=== PATIENT | female | born 1930 ===

== ENCOUNTER 2017-07-05 09:54 | Inpatient (IN) | payer MEDICARE, MEDICAID ==
[2017-07-05 10:09] VITALS: BMI 37.0
--- NOTE | 2017-07-05 10:56 | CP.PCM.HP ---
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 Present on Admission - Present on Admission Any Indicators Present on Admission: No History of DVT/PE: No History of Uncontrolled Diabetes: No Urinary Catheter: No Decubitus Ulcer Present: No Review of Systems - Review of Systems Systems not reviewed;Unavailable: Dementia Past Patient History - Tetanus Immunizations Tetanus Immunization: Unknown - Past Medical History & Family History Past Medical History?: Yes Past Family History: Reviewed and not pertinent - Past Social History Smoking Status: Never Smoked Alcohol: None Home Situation {Lives}: With Family - CARDIAC Hx Cardiac Disorders: Yes Hx Heart Attack: Yes Hx Hypertension: Yes - PULMONARY Hx Respiratory Disorders: No - NEUROLOGICAL Hx Neurological Disorder: Yes Hx Dementia: Yes - HEENT Hx HEENT Problems: No - RENAL Hx Chronic Kidney Disease: No - ENDOCRINE/METABOLIC Hx Endocrine Disorders: Yes Hx Hypothyroidism: Yes - HEMATOLOGICAL/ONCOLOGICAL Hx Blood Disorders: No - INTEGUMENTARY Hx Dermatological Problems: No - MUSCULOSKELETAL/RHEUMATOLOGICAL Hx Osteoarthritis: Yes Hx Osteoporosis: Yes - GASTROINTESTINAL Hx Gastrointestinal Disorders: No - GENITOURINARY/GYNECOLOGICAL Hx Genitourinary Disorders: No - PSYCHIATRIC Hx Psychophysiologic Disorder: No - SURGICAL HISTORY Hx Surgeries: No - ANESTHESIA Hx Anesthesia: No Meds Allergies/Adverse Reactions: Allergies Allergy/AdvReac Type Severity Reaction Status Date / Time No Known Allergies Allergy Verified 07/05/17 10:06 Physical Exam - Constitutional Appears: No Acute Distress - Head Exam Head Exam: ATRAUMATIC - Eye Exam Eye Exam: absent: Scleral icterus - ENT Exam ENT Exam: Mucous Membranes Moist - Neck Exam Neck exam: Negative for: Meningismus - Respiratory Exam Respiratory Exam: absent: Rhonchi, Wheezes, Respiratory Distress - Cardiovascular Exam Cardiovascular Exam: REGULAR RHYTHM, +S1, +S2 - GI/Abdominal Exam GI & Abdominal Exam: Soft. absent: Tenderness - Rectal Exam Rectal Exam: Deferred - Extremities Exam Extremities exam: Negative for: full ROM (limited ROM on right knee) - Neurological Exam Neurological exam: Alert - Psychiatric Exam Psychiatric exam: Normal Affect - Skin Skin Exam: Dry, Intact Results - Vital Signs Recent Vital Signs: Last Vital Signs Temp 97.9 F 07/05/17 10:46 Pulse 62 07/05/17 10:46 Resp 20 07/05/17 10:46 BP 140/67 07/05/17 10:46 Pulse Ox 95 07/05/17 10:46 Assessment & Plan (1) Osteoarthritis of right knee Status: Chronic (2) CAD (coronary artery disease) Status: Chronic (3) HTN (hypertension) Status: Chronic (4) Dementia Status: Chronic (5) Hypothyroid Status: Chronic - Assessment and Plan (Free Text) Assessment: 86 yo female with history 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 1. OA of Right Knee for TKR of the right by Dr Brar today pt cleared for surgery by PCP and wild life photographer 2. CAD denied chest pain or SOB did not take Isosorbide today as per instruction 3. HTN BP stable took Enalapril/HCTZ this morning 4. Dementia on Donepezil and Memantine but held this morning prior to surgery 5. Hypothyroid on Levothyroxine 100mcg daily but held this morning
[2017-07-05] MEDS ORDERED: Thrombin Topical 5,000 IU Spray Kit ONE (11:15)
[2017-07-05] MEDS ORDERED: Ciprofloxacin 400mg/200ml D5W 400 MG/200 ML BAG IVPB ONE (11:50)
[2017-07-05 13:16] LABS: RBC URINE 1 /hpf (0-3); URINE BILIRUBIN NEGATIVE (NEGATIVE); URINE BLOOD NEGATIVE (NEGATIVE); URINE COLOR YELLOW (YELLOW); URINE GLUCOSE (UA) NEG (Normal); URINE KETONE NEGATIVE (NEGATIVE); URINE LEUKOCYTE ESTERASE NEG Leu/uL (Negative); URINE PROTEIN NEGATIVE (NEGATIVE); URINE UROBILINOGEN 0.2-1.0 mg/dL (0.2-1.0)
[2017-07-05] MEDS ORDERED: Lidocaine 4% (Laryng-O-Jet) Kit MM ONE (15:09)
[2017-07-05] MEDS ORDERED: Phenylephrine 10 mg/ml Inj ONE (15:10)
[2017-07-05] MEDS ORDERED: Etomidate 20 mg/10ml Inj IV ONE (15:10)
[2017-07-05] MEDS ORDERED: Lidocaine Hydrochloride 5 ML INJ ONE (15:10)
[2017-07-05] MEDS ORDERED: Rocuronium 10 mg/ml (5 ml) ONE (15:11)
[2017-07-05] MEDS ORDERED: Succinylcholine 200 mg/10 ml Inj IV ONE (15:11)
[2017-07-05] MEDS ORDERED: Lactated Ringer's 1,000 ML IV ONE ×2 (18:15→23:00)
[2017-07-05] MEDS ORDERED: Sevoflurane - Inhalation Anesthetic Liq (250 ml) ONE (19:16)
[2017-07-05] MEDS ORDERED: ePHEDrine 50 mg/ml Inj ONE (19:39)
[2017-07-05] MEDS ORDERED: Neostigmine Methylsulfate 2 MG/2 ML ML IV ONE (20:07)
--- NOTE | 2017-07-05 21:18 | PCM.SURG1 ---
Surgeon's Initial Post Op Note - Surgeon's Notes Surgeon: Maykel Access Database Developer: FIOR Manzo Type of Anesthesia: General Endo, Spinal, Block Regional Anesthesia Administered By: Dr Chaitanya Mendez Pre-Operative Diagnosis: sevre tricompartmental O/A R knee with varus deformity Operative Findings: as abobe. tricompartmental synovitis. posterior capsular contracture. lateral patella contracture. attenuation patella ligament Post-Operative Diagnosis: as above Operation Performed: RTKR. repair/reiunforcemnt patella ligament. anterior and posterior synovectomy. posterior capsular release. lateral patella release Specimen/Specimens Removed: synovium cartilage/bone Estimated Blood Loss: EBL {In ML}: 50 Blood Products Given: N/A Drains Used: No Drains Post-Op Condition: Good Date of Surgery/Procedure: 07/05/17 Time of Surgery/Procedure: 19:00 (tiem in room/anesthesia indcution time 18:15)
[2017-07-05] MEDS ORDERED: Propofol 10 mg/ml Inj (100 ml) IV SCH (22:30)
[2017-07-05] MEDS ORDERED: Propofol 10 mg/ml 1,000 MG/100 ML VIAL IV SCH (22:30)
[2017-07-05] MEDS ORDERED: Propofol 10 mg/ml 1,000 MG/100 ML VIAL ONE (22:32)
--- NOTE | 2017-07-05 22:59 | CP.PCM.CON ---
History of Present Illness - History of Present Illness History of Present Illness: Attending: Jorge Niño MD Orthopedist: Dr Brar Reason for Consult: Critical Care Management Chief Complaint: Respiratory distress The patient is sanjiv nd examined in the ICU s/p Right TKR HPI: The History is obtained from [facility] and from the medical record. This is an 86 years old female with hx of being treated with Cipro for UTI, Dementia, CAD, WI with a negative Stress test done at [facility] by Dr Cho, and HTN, who failed conservative management of Osteoarthritis of the right knee and is now admitted in the ICU s/p Right Total knee Replacement. The patient received 1 Liter of fluid in OR along with Femoral and Sciatic nerve Blocks. She awoke from Anesthesia combative, coughing on the tube with respiratory rate of 18/min. She was extubated but could not maintain acceptable Oxygen Saturation , so she was re-intubated ( AC 10, TV 400, PEEP 5 andFiO2 of 60); and transferred to ICU. PMH: HTN; CAD with WI; Hypothyroidism; Dementia; Osteoarthritis; Osteopenia PSH: Right TKR SH: Never Smoked; no illegal drug use; No Alcohol; Live with Family FH: Unknown Family Hx Allergies: NKDA Review of Systems - Review of Systems Systems not reviewed;Unavailable: Dementia, Intubated Review of Systems: Review of systems limited because the patient is Intubated and sedated. Past Patient History - Tetanus Immunizations Tetanus Immunization: Unknown - Past Medical History & Family History Past Medical History?: Yes Past Family History: Reviewed and not pertinent - Past Social History Smoking Status: Never Smoked Chewing Tobacco Use: No Cigar Use: No Alcohol: None Home Situation {Lives}: With Family - CARDIAC Hx Cardiac Disorders: Yes Hx Heart Attack: Yes Hx Hypertension: Yes - PULMONARY Hx Respiratory Disorders: No - NEUROLOGICAL Hx Neurological Disorder: Yes Hx Dementia: Yes - HEENT Hx HEENT Problems: No - RENAL Hx Chronic Kidney Disease: No - ENDOCRINE/METABOLIC Hx Endocrine Disorders: Yes Hx Hypothyroidism: Yes - HEMATOLOGICAL/ONCOLOGICAL Hx Blood Disorders: No - INTEGUMENTARY Hx Dermatological Problems: No - MUSCULOSKELETAL/RHEUMATOLOGICAL Hx Osteoarthritis: Yes Hx Osteoporosis: Yes - GASTROINTESTINAL Hx Gastrointestinal Disorders: No - GENITOURINARY/GYNECOLOGICAL Hx Genitourinary Disorders: No - PSYCHIATRIC Hx Psychophysiologic Disorder: No - SURGICAL HISTORY Hx Surgeries: No - ANESTHESIA Hx Anesthesia: No Meds Allergies/Adverse Reactions: Allergies Allergy/AdvReac Type Severity Reaction Status Date / Time No Known Allergies Allergy Verified 07/05/17 10:06 - Medications Medications: Current Medications Cefazolin Sodium 1 gm/ Sodium (Chloride) 100 mls @ 100 mls/hr IVPB Q8 [facility] Stop: 07/06/17 09:59 Propofol (Diprivan) 1,000 mg in 100 mls @ 2.245 mls/hr IV .Q24H [facility]; 5 MCG/KG/ MIN PRN Reason: Protocol Stop: 07/06/17 22:47 Propofol (Diprivan) 1,000 mg IV .TITRATE [facility] PRN Reason: Protocol Physical Exam - Constitutional Appears: In Acute Distress - Head Exam Head Exam: ATRAUMATIC, NORMOCEPHALIC - Eye Exam Eye Exam: EOMI, Normal appearance - ENT Exam ENT Exam: Mucous Membranes Moist, Normal Exam, Normal External Ear Exam - Neck Exam Neck exam: Positive for: Full Rom, Normal Inspection. Negative for: Lymphadenopathy, Thyromegaly - Respiratory Exam Respiratory Exam: Rales, Wheezes Additional comments: Inspiratory and expiratory rales Auscultated in both lung malcolm R>L. expiratory wheezes bilateral. - Cardiovascular Exam Cardiovascular Exam: REGULAR RHYTHM, RRR, +S1, +S2 - GI/Abdominal Exam GI & Abdominal Exam: Normal Bowel Sounds, Soft - Rectal Exam Rectal Exam: Deferred - Extremities Exam Additional comments: Right lower extremity in post surgical dressing wrapped in MOHIT bandage with a Knee immobilizer in place. - Back Exam Back exam: NORMAL INSPECTION - Neurological Exam Neurological exam: CN II-XII Intact, Reflexes Normal Additional comments: Intubated, but now awake on the Precidex, moving both upper extremities. - Skin Skin Exam: Intact, Normal Color, Warm Results - Vital Signs Recent Vital Signs: Last Vital Signs Temp 97.5 F L 07/05/17 22:45 Pulse 92 H 07/05/17 22:45 Resp 16 07/05/17 22:45 BP 91/56 L 07/05/17 22:45 Pulse Ox 100 07/05/17 22:45 - Labs Labs: Laboratory Results - last 24 hr 07/05/17 07/05/17 10:50 12:30 Urine Color Yellow Urine Clarity Turbid Urine pH 7.0 Ur Specific [place] 1.018 Urine Protein Negative Urine Glucose (UA) Neg Urine Ketones Negative Urine Blood Negative Urine Nitrate Negative Urine Bilirubin Negative Urine Urobilinogen 0.2-1.0 Ur Leukocyte Esterase Neg Urine RBC (Auto) 1 Ur Squamous Epith Cells < 1 Amorphous Sediment Moderate H Blood Type O POSITIVE Antibody Screen Negative BBK History Checked No verified bt Assessment & Plan - Assessment and Plan (Free Text) Assessment: #. Acute Respiratory Distress #. Osteoarthritis s/p Right TKR #. HTN #. Hypothyroidism #. Dementia Plan: 86 years old female with hx of being treated with Cipro for UTI, Dementia, CAD, WI with a negative Stress test done at [facility] by Dr Cho, and HTN, who failed conservative management of Osteoarthritis of the right knee and is now admitted in the ICU s/p Right Total knee Replacement. She awoke from Anesthesia combative, was extubated but could not maintain acceptable Oxygen Saturation, so she was re-intubated and transferred to ICU. #. Acute Respiratory Distress secondary to volume overload - Patient extubated post surgery but was reintubated by Anesthesia( AC 10, TV 400, PEEP of 5 and FiO2 of 50%) - CXR showed Elevated right diaphragm with interstitial infiltrate in left lung >than right lung - IV fluid reduced to 20mls/hr - Lasix 20mg IV stat - Morphine 2mg IV given - Prppoful was started but was changed to Precidex after patient was still restless with BP falling. #. Osteoarthritis s/p Right TKR - Orthopedic Dr Brar on consult - Orthopedic management - Pain management - patient received Femoral and Sciatic Blocks - OT/PT #. HTN - Restart Antihypertensive medication when patient begin oral or via OG tube -follow Blood pressures #. Hypothyroidism - Synthroid - Follow TSH #. Dementia - Namenda/Aricept when OG tube is inserted #. Stress Ulcer prophylaxis with Pantoprazole #. DVT prophylaxis with Lovenox #. Code Scale : Full - Date & Time Date: 07/05/17 Time: 22:59
[2017-07-05] MEDS ORDERED: Sodium Chloride 0.9% 1,000 ML IV SCH (23:45)
[2017-07-06] MEDS: ceFAZolin 1 GM in Sodium Chloride 0.9% 100 ML IVPB SCH ×2 (00:44→08:35)
[2017-07-06] MEDS ORDERED: Dexmedetomidine Hydrochloride 400 MCG in Sodium Chloride 0.9% 96 ML IV ONE ×3 (01:05→07:30)
[2017-07-06] MEDS ORDERED: Sodium Chloride 0.9% 1,000 ML IV SCH (02:25)
[2017-07-06] MEDS ORDERED: Chlorhexidine Gluconate 1 APPL/PKT TP ONE ×2 (02:39→04:10)
--- NOTE | 2017-07-06 02:41 | OP ---
PROCEDURE DATE: 07/05/2017 PREOPERATIVE DIAGNOSIS: Severe tricompartmental osteoarthritis of the right knee. POSTOPERATIVE DIAGNOSES: 1. Severe tricompartmental osteoarthritis of the right knee. 2. Proliferative synovitis. 3. Posterior capsular contracture. 4. Lateral patellar retinacular contracture. 5. Attenuation of patellar ligament. PROCEDURE: 1. Right total knee replacement arthroplasty. 2. Reconstruction patellar ligament. 3. Anterior and posterior synovectomy. 4. Posterior capsular release. 5. Lateral patellar retinacular release. SURGEON: Dr. Brar. REGASIFICATION PLANT OPERATOR: MAXI Tesfaye, certified resident nursing first crusher. ESTIMATED BLOOD LOSS: 50 mL BLOOD PRODUCTS: None. DRAINS: None. POSTOPERATIVE CONDITION: Stable. TIME: Time of the incision 1900 hours. Anesthesia induction time 1815 hours. OPERATIVE INDICATION: Olga Cannon is an 86-year-old woman, who presents with severe pain and deformity of the right knee. The patient presents with her son and [id number], who are the culturally competent translators. Pros, cons, risks and benefits of replacement arthroplasty discussed at length. The possibility of mechanical failure, infection, thromboembolic disease secondary to tertiary surgery is discussed. The patient's comorbidities and age, possibility even of is discussed. The patient wished the surgery be accomplished. She can no longer stand the discomfort. DESCRIPTION OF PROCEDURE: After having obtained informed consent in the above fashion; after the satisfactory induction of general and regional anesthesia by Dr. Avery; after having identified side, site, and procedure and critical pause/timeout; the patient identified as Olga Cannon in the supine position with all bony prominences well padded. The right lower extremity is prepped and free draped in the usual fashion for lower extremity surgery. The tourniquet had been applied, but has not yet inflated. After exsanguinating the limbs using 6 inch esmarch bandage, the tourniquet which had been applied inflated to 350 mmHg. The 6-inch straight midline approach is made near the skin incision, carried down through the skin, subcutaneous tissue and medial arthrotomy is accomplished. Dissection is carried around posterior medially to the direct head of the semimembraneous tendon. The portion of the patella ligament is elevated and anterior and posterior cruciate ligaments were excised. Median and lateral meniscectomies were accomplished. The tibia is dislocated anteriorly and the initial osteotomy of the arthroplasty is accomplished on the tibial side. The site to be marked medial deformity using computer navigation with accelerometer technique. The accelerometer is applied. The sensor and accelerometer were applied and affixed in the anterior tibia. Varus and valgus is set to 0 x 0 degrees with 3 degrees posterior slope. The depth of the cut is 1 mm below the deficiency on the medial side. Tibial osteotomy is accomplished. The proximal tibia is prepared and punched. The cartilage on the medial side is burred and this will be used with reinforced screw. This having been accomplished, attention is now turned to the femur. The guide pin is placed above the intercondylar notch. Distal femoral cutting guide is placed. The accelerometer and sensor were placed. Varus and valgus is set to 0 degrees with 0.5 degrees slope on the femoral cut. The distal cut is accomplished at 9 mm anterior and posterior sizing to a #2 femoral component. Anterior and posterior osteotomies were accomplished. Chamfer cuts were accomplished. The trial is placed. It should be noted that the posterior capsule is released because this contracted a mild lateral patellar retinacular release is accomplished. The wound is thoroughly irrigated. Concern is because the attenuation of the patellar ligament. Tying is accomplished with a #2 cemented femoral component. Three cemented tibial tray 17 mm poly. The notch is cut. Attention is turned to the patella. The patella girth is 26 mm. Free hand patella osteotomy is accomplished and the patella is sized for a #2. This having been accomplished, the defect is in the medial tibia. It is drilled with a 2.5 AO drill bit sounding insertion of the screw. This having been accomplished, a #2 femoral component, #3 tibial tray, 17 mm poly is trailed with the #2 patella. Balance was found to be excellent. At this point in time, concern is patellar ligament will be reinforced with a suture anchor. The femur, tibia, and patella are prepared and lateral patellar retinacular release is accomplished and the #2 cemented femoral component is applied and #3 cemented tibial tray, #2 cemented polyethylene. The tourniquet is deflated. Hemostasis controlled. The wound was thoroughly irrigated. Stability is found to be excellent. Full extension is achieved. Flexion, closures and layers with #2 Quill followed by 0 Quill interrupted Vicryl lee for skin. It should be noted that prior to closure, repair/reconstruction of the patellar ligament is accomplished using Arthrex suture anchor 4.5 mm and the 2 fiber wire sutures were used to reinforce and repair the patellar ligament with a free needle placement through the patellar ligament and having secured the patellar ligament. This having been accomplished, the wound was thoroughly irrigated. Closure having been accomplished. Lee for skin. Edgar Keith compression dressing and knee immobilizer was applied. Zurdo Brar MD
[2017-07-06 05:21] LABS: HEMATOCRIT 40.6 % (34.0-47.0); MEAN CELL VOLUME 85.7 fl (81.0-99.0); MEAN CORPUSCULAR HEMOGLOBIN 27.8 pg (27.0-31.0); MEAN CORPUSCULAR HGB CONC 32.5 g/dL (33.0-37.0); RED CELL DISTRIBUTION WIDTH 15.5 % (11.5-14.5); WHITE BLOOD COUNT 10.3 K/uL (4.8-10.8)
[2017-07-06 05:26] LABS: BLOOD UREA NITROGEN 10 mg/dl (7-17); CALCIUM 7.9 mg/dL (8.4-10.2); CARBON DIOXIDE 24 mmol/L (22-30); CHLORIDE 104 mmol/L (98-107); GFR AFRICAN-AMERICAN > 60; GLUCOSE,RANDOM 156 mg/dL (65-105); POTASSIUM 3.9 MMOL/L (3.6-5.0); SODIUM 139 mmol/l (132-148)
[2017-07-06 05:58] LABS: ABG ALLEN TEST YES; ABG MECHANICAL RATE 10; ARTERIAL BLOOD GAS MODE A/C; ARTERIAL BLOOD GAS O2 CAPACITY 18.1 mL/dL (16-24); ARTERIAL BLOOD GAS O2 CONTENT 17.9 ML/dL (15-23); ARTERIAL BLOOD GAS PH 7.41 (7.35-7.45); ARTERIAL BLOOD GAS PO2 92 mm/Hg (80-100); ARTERIAL BLOOD HGB O2 SAT 95.5 % (95.0-98.0); ATERIAL BLOOD GAS PEEP 5; CARBOXYHEMOGLOBIN 1.5 % (0.5-1.5); HHB 1.2 % (0.0-5.0); METHEMOGLOBIN 1.7 % (0.0-3.0)
[2017-07-06] MEDS ORDERED: Pneumococcal 23-Valent Vaccine IM ONE (06:00)
[2017-07-06] MEDS ORDERED: Influenza Vaccine 18yr & older 0.5 ML/45 MCG SYR IM ONE (06:00)
[2017-07-06 06:22] LABS: PARTIAL THROMBOPLASTIN TIME 25.5 Seconds (25.6-37.1)
--- NOTE | 2017-07-06 07:22 | CP.PCM.PN ---
Subjective - Date & Time of Evaluation Date of Evaluation: 07/06/17 Time of Evaluation: 07:15 - Subjective Subjective: S- pt comfortable/currentl;y intubated ( at discretion of Dr Mendez) Objective - Vital Signs/Intake and Output Vital Signs (last 24 hours): Temp Pulse Resp BP Pulse Ox 97.5 F L 61 15 88/48 L 100 07/06/17 04:00 07/06/17 06:00 07/06/17 06:00 07/06/17 06:09 07/06/17 06:00 Intake and Output: 07/06/17 07/06/17 06:59 18:59 Intake Total 630 Output Total 950 Balance -320 - Medications Medications: Current Medications Donepezil HCl (Aricept) 10 mg PO DAILY [facility] Enalapril Maleate (Vasotec) 5 mg PO DAILY [facility] Enoxaparin Sodium (Lovenox) 40 mg SC DAILY [facility] PRN Reason: Protocol Cefazolin Sodium 1 gm/ Sodium (Chloride) 100 mls @ 100 mls/hr IVPB Q8 [facility] Stop: 07/06/17 09:59 Last Admin: 07/06/17 00:44 Dose: 100 mls/hr Sodium Chloride (Sodium Chloride 0.9%) 1,000 mls @ 20 mls/hr IV .Q24H [facility] Stop: 07/06/17 23:34 Last Admin: 07/06/17 02:30 Dose: 20 mls/hr Dexmedetomidine HCl 400 mcg/ (Sodium Chloride) 100 mls @ 7.48 mls/hr IV .[id number] ONE; 0.4 MCG/KG/HR PRN Reason: Protocol Stop: 07/06/17 20:52 Isosorbide Mononitrate (Imdur Er) 30 mg PO DAILY [facility] Levothyroxine Sodium (Synthroid) 50 mcg IVP DAILY [facility] Memantine (Namenda) 10 mg PO DAILY [facility] Pantoprazole Sodium (Protonix Susp) 40 mg NG DAILY [facility] Pravastatin Sodium (Pravachol) 20 mg PO DAILY [facility] Sertraline HCl (Zoloft) 25 mg PO DAILY [facility] - Labs Labs: 07/06/17 04:25 07/06/17 04:25 PT 12.9 Seconds (9.8-13.1) 07/06/17 04:25 INR 1.3 (0.9-1.2) H 07/06/17 04:25 APTT 25.5 Seconds (25.6-37.1) L 07/06/17 04:25 - Skin Additional comments: Objective Musculoskeltal stance/gait- defrred R knee wound neign N/V intact no gross/progressive defciits post op xrays reveal excellent position of construct Assessment and Plan - Assessment and Plan (Free Text) Assessment: A-s/p R TKR pt [id number] secondary to combative behavior post op P- wean off tube as per anaesthesia CPM physio DR Schuster and DR king on consult
[2017-07-06] MEDS ORDERED: Levothyroxine 100 mcg (0.1 mg) Inj IVP SCH (09:00)
--- NOTE | 2017-07-06 09:18 | CP.PCM.CON ---
History of Present Illness - History of Present Illness History of Present Illness: THE PATIENT IS AN 86 YEAR OLD FEMALE WHO UNDERWENT A RIGHT TKR YESTERDAY FOR OA. SHE ALSO HAS A HISTORY OF CAD, HYPERTENSION AND DEMENTIA. CARDIOLOGY WAS ASKED TO SEE AND FOLLOW HER. THE PATIENT IS ON MV AND CAN'T GIVE ME MORE OF A HISTORY. Past Patient History - Tetanus Immunizations Tetanus Immunization: Unknown - Past Medical History & Family History Past Medical History?: Yes Past Family History: Reviewed and not pertinent - Past Social History Smoking Status: Never Smoked Chewing Tobacco Use: No Cigar Use: No Alcohol: None Home Situation {Lives}: With Family - CARDIAC Hx Cardiac Disorders: Yes Hx Heart Attack: Yes Hx Hypertension: Yes - PULMONARY Hx Respiratory Disorders: No - NEUROLOGICAL Hx Neurological Disorder: Yes Hx Dementia: Yes - HEENT Hx HEENT Problems: No - RENAL Hx Chronic Kidney Disease: No - ENDOCRINE/METABOLIC Hx Endocrine Disorders: Yes Hx Hypothyroidism: Yes - HEMATOLOGICAL/ONCOLOGICAL Hx Blood Disorders: No - INTEGUMENTARY Hx Dermatological Problems: No - MUSCULOSKELETAL/RHEUMATOLOGICAL Hx Osteoarthritis: Yes Hx Osteoporosis: Yes - GASTROINTESTINAL Hx Gastrointestinal Disorders: No - GENITOURINARY/GYNECOLOGICAL Hx Genitourinary Disorders: No - PSYCHIATRIC Hx Psychophysiologic Disorder: No - SURGICAL HISTORY Hx Surgeries: No - ANESTHESIA Hx Anesthesia: No Meds Allergies/Adverse Reactions: Allergies Allergy/AdvReac Type Severity Reaction Status Date / Time No Known Allergies Allergy Verified 07/05/17 10:06 - Medications Medications: Current Medications Donepezil HCl (Aricept) 10 mg PO DAILY [facility] Enoxaparin Sodium (Lovenox) 40 mg SC DAILY [facility] PRN Reason: Protocol Hydromorphone HCl (Dilaudid) 1 mg IVP Q4 PRN PRN Reason: Pain, moderate (4-7) Last Admin: 07/06/17 08:41 Dose: 1 mg Cefazolin Sodium 1 gm/ Sodium (Chloride) 100 mls @ 100 mls/hr IVPB Q8 [facility] Stop: 07/06/17 09:59 Last Admin: 07/06/17 08:35 Dose: 100 mls/hr Sodium Chloride (Sodium Chloride 0.9%) 1,000 mls @ 20 mls/hr IV .Q24H [facility] Stop: 07/06/17 23:34 Last Admin: 07/06/17 02:30 Dose: 20 mls/hr Levothyroxine Sodium (Synthroid) 50 mcg IVP DAILY [facility] Last Admin: 07/06/17 08:30 Dose: 50 mcg Memantine (Namenda) 10 mg PO DAILY [facility] Pantoprazole Sodium (Protonix Susp) 40 mg NG DAILY [facility] Pravastatin Sodium (Pravachol) 20 mg PO DAILY [facility] Sertraline HCl (Zoloft) 25 mg PO DAILY [facility] Physical Exam - Respiratory Exam Respiratory Exam: Clear to Auscultation Bilateral - Cardiovascular Exam Cardiovascular Exam: REGULAR RHYTHM, +S1, +S2 - Additional Findings Additional findings: MILL OPERATOR HEAD NSR LABS NOTED POST OP NOTE REVIEWED Results - Vital Signs Recent Vital Signs: Last Vital Signs Temp 98.4 F 07/06/17 08:00 Pulse 63 07/06/17 09:00 Resp 12 07/06/17 09:00 BP 89/51 L 07/06/17 09:00 Pulse Ox 100 07/06/17 09:00 - Labs Result Diagrams: 07/06/17 04:25 07/06/17 04:25 Labs: Laboratory Results - last 24 hr 07/05/17 07/05/17 07/06/17 10:50 12:30 04:12 WBC RBC Hgb Hct MCV MCH MCHC RDW Plt Count PT INR APTT pCO2 39 pO2 92 HCO3 25.0 ABG pH 7.41 ABG Total CO2 25.9 ABG O2 Saturation 98.8 H ABG O2 Content 17.9 ABG Base Excess 0.1 ABG Hemoglobin 13.3 ABG Carboxyhemoglobin 1.5 POC ABG HHb (Measured) 1.2 ABG Methemoglobin 1.7 ABG O2 Capacity 18.1 Eugenio Test Yes A-a O2 Difference 287.0 Hgb O2 Saturation 95.5 Vent Mode A/c Mechanical Rate 10 FiO2 60.0 Tidal Volume 400 PEEP 5 Sodium Potassium Chloride Carbon Dioxide Anion Gap BUN Creatinine Est GFR ( Amer) Est GFR (Non-Af Amer) Random Glucose Calcium Urine Color Yellow Urine Clarity Turbid Urine pH 7.0 Ur Specific [place] 1.018 Urine Protein Negative Urine Glucose (UA) Neg Urine Ketones Negative Urine Blood Negative Urine Nitrate Negative Urine Bilirubin Negative Urine Urobilinogen 0.2-1.0 Ur Leukocyte Esterase Neg Urine RBC (Auto) 1 Ur Squamous Epith Cells < 1 Amorphous Sediment Moderate H Blood Type O POSITIVE Antibody Screen Negative BBK History Checked No verified bt 0907/[id number]/17 07/06/17 04:25 04:25 04:25 WBC 10.3 RBC 4.73 Hgb 13.2 Hct 40.6 MCV 85.7 MCH 27.8 MCHC 32.5 L RDW 15.5 H Plt Count 214 PT 12.9 INR 1.3 H APTT 25.5 L pCO2 pO2 HCO3 ABG pH ABG Total CO2 ABG O2 Saturation ABG O2 Content ABG Base Excess ABG Hemoglobin ABG Carboxyhemoglobin POC ABG HHb (Measured) ABG Methemoglobin ABG O2 Capacity Eugenio Test A-a O2 Difference Hgb O2 Saturation Vent Mode Mechanical Rate FiO2 Tidal Volume PEEP Sodium 139 Potassium 3.9 Chloride 104 Carbon Dioxide 24 Anion Gap 15 BUN 10 Creatinine 0.7 Est GFR ( Amer) > 60 Est GFR (Non-Af Amer) > 60 Random Glucose 156 H Calcium 7.9 L Urine Color Urine Clarity Urine pH Ur Specific [place] Urine Protein Urine Glucose (UA) Urine Ketones Urine Blood Urine Nitrate Urine Bilirubin Urine Urobilinogen Ur Leukocyte Esterase Urine RBC (Auto) Ur Squamous Epith Cells Amorphous Sediment Blood Type Antibody Screen BBK History Checked Assessment & Plan - Assessment and Plan (Free Text) Assessment: S/P RIGHT TKR CAD HYPERTENSION Plan: CONTINUE ANTIBIOTICS, LOVENOX AND PRAVACHOL FOR EXTUBATION
--- NOTE | 2017-07-06 10:07 | PCM.PROC ---
Procedures Attestation:: I certify that I have explained the specified Operation(s) or Procedure(s), risks, benefits and reasonable alternatives to the Patient and/or other person responsible. The opportunity was given to ask questions and all questions answered - Extubation Clinical Parameters: Hemodynamically Stable, Spontaneous Respirations, Acceptable Vent Settings (FIO2<50%, PEEP<8, PaO2>75, pH>7.25) Weaning Criteria Met: Yes General Weaning Approaches: Spontaneous breathing trials and use of T-Piece Patient Condition: Patient has been successfully extubated and assessed Oxygen Therapy: O2 via Venti Mask (50% VM) Patient Tolerated Procedure: Well
--- NOTE | 2017-07-06 10:25 | CP.PCM.CON ---
History of Present Illness - History of Present Illness History of Present Illness: Patient was seen in the ICU this morning. Case was discussed with the telephone instrument supervisor. This 86 year old female had a right TKR last night w/o intraoperative problems. She was extubated in the recovery room but developed oxygen desaturation requiring re-intubation and mechanical ventilation overnight. There is only one CXR overnight which was rotated, but appeared to have good tube placement, elevated left hemidiaphragm, but no parenchymal infiltrates, pneumothorax or pleural effusions. She was stable and well oxygenated overnight and is presently awake and on CPAP/PS ventilation. There is apparently no prior history of pleuro-pulmonary disease, but a significant cardiac history with prior [place]. She did undergo a thorough cardiac workup for clearance preoperatively. She is a 'never smoker' as noted in the EMR. Review of Systems - Review of Systems Systems not reviewed;Unavailable: Intubated Past Patient History - Tetanus Immunizations Tetanus Immunization: Unknown - Past Medical History & Family History Past Medical History?: Yes Past Family History: Reviewed and not pertinent - Past Social History Smoking Status: Never Smoked Chewing Tobacco Use: No Cigar Use: No Alcohol: None Home Situation {Lives}: With Family - CARDIAC Hx Cardiac Disorders: Yes Hx Heart Attack: Yes Hx Hypertension: Yes - PULMONARY Hx Respiratory Disorders: No - NEUROLOGICAL Hx Neurological Disorder: Yes Hx Dementia: Yes - HEENT Hx HEENT Problems: No - RENAL Hx Chronic Kidney Disease: No - ENDOCRINE/METABOLIC Hx Endocrine Disorders: Yes Hx Hypothyroidism: Yes - HEMATOLOGICAL/ONCOLOGICAL Hx Blood Disorders: No - INTEGUMENTARY Hx Dermatological Problems: No - MUSCULOSKELETAL/RHEUMATOLOGICAL Hx Osteoarthritis: Yes Hx Osteoporosis: Yes - GASTROINTESTINAL Hx Gastrointestinal Disorders: No - GENITOURINARY/GYNECOLOGICAL Hx Genitourinary Disorders: No - PSYCHIATRIC Hx Psychophysiologic Disorder: No - SURGICAL HISTORY Hx Surgeries: No - ANESTHESIA Hx Anesthesia: No Meds Allergies/Adverse Reactions: Allergies Allergy/AdvReac Type Severity Reaction Status Date / Time No Known Allergies Allergy Verified 07/05/17 10:06 - Medications Medications: Current Medications Donepezil HCl (Aricept) 10 mg PO DAILY [facility] Enoxaparin Sodium (Lovenox) 40 mg SC DAILY [facility] PRN Reason: Protocol Hydromorphone HCl (Dilaudid) 1 mg IVP Q4 PRN PRN Reason: Pain, moderate (4-7) Last Admin: 07/06/17 08:41 Dose: 1 mg Sodium Chloride (Sodium Chloride 0.9%) 1,000 mls @ 20 mls/hr IV .Q24H [facility] Stop: 07/06/17 23:34 Last Admin: 07/06/17 02:30 Dose: 20 mls/hr Levothyroxine Sodium (Synthroid) 50 mcg IVP DAILY [facility] Last Admin: 07/06/17 08:30 Dose: 50 mcg Memantine (Namenda) 10 mg PO DAILY [facility] Pantoprazole Sodium (Protonix Susp) 40 mg NG DAILY [facility] Pravastatin Sodium (Pravachol) 20 mg PO DAILY [facility] Sertraline HCl (Zoloft) 25 mg PO DAILY [facility] Last Admin: 07/06/17 10:09 Dose: Not Given Physical Exam - Additional Findings Additional findings: Awake, orally intubated, cooperative with the exam. A small amount of thin mucoid secretions were obtained on suctioning. Conjunctivae are pink, no scleral icterus. Neck appears supple and trachea is midline. No dullness on percussion of the anterior chest wall. No subcut emphysema. Breath sounds are well heard bilaterally without wheezing. Rare dry rales were present in the lower lobes posteriorly. Heart sounds were distant and the rhythm regular. Abdomen was soft with + bowel sounds. Elastic surgical dressing applied to the RLE, no edema on the left. No cyanosis, rash or visible ecchymosis. Results - Vital Signs Recent Vital Signs: Last Vital Signs Temp 98.4 F 07/06/17 08:00 Pulse 73 07/06/17 09:58 Resp 26 H 07/06/17 09:58 BP 104/59 L 07/06/17 09:58 Pulse Ox 97 07/06/17 09:58 - Labs Result Diagrams: 07/06/17 04:25 07/06/17 04:25 Labs: Laboratory Results - last 24 hr 07/05/17 07/05/17 07/06/17 10:50 12:30 04:12 WBC RBC Hgb Hct MCV MCH MCHC RDW Plt Count PT INR APTT pCO2 39 pO2 92 HCO3 25.0 ABG pH 7.41 ABG Total CO2 25.9 ABG O2 Saturation 98.8 H ABG O2 Content 17.9 ABG Base Excess 0.1 ABG Hemoglobin 13.3 ABG Carboxyhemoglobin 1.5 POC ABG HHb (Measured) 1.2 ABG Methemoglobin 1.7 ABG O2 Capacity 18.1 Eugenio Test Yes A-a O2 Difference 287.0 Hgb O2 Saturation 95.5 Vent Mode A/c Mechanical Rate 10 FiO2 60.0 Tidal Volume 400 PEEP 5 Sodium Potassium Chloride Carbon Dioxide Anion Gap BUN Creatinine Est GFR ( Amer) Est GFR (Non-Af Amer) Random Glucose Calcium Urine Color Yellow Urine Clarity Turbid Urine pH 7.0 Ur Specific [place] 1.018 Urine Protein Negative Urine Glucose (UA) Neg Urine Ketones Negative Urine Blood Negative Urine Nitrate Negative Urine Bilirubin Negative Urine Urobilinogen 0.2-1.0 Ur Leukocyte Esterase Neg Urine RBC (Auto) 1 Ur Squamous Epith Cells < 1 Amorphous Sediment Moderate H Blood Type O POSITIVE Antibody Screen Negative BBK History Checked No verified bt 07/06/17 07/06/17 07/06/17 04:25 04:25 04:25 WBC 10.3 RBC 4.73 Hgb 13.2 Hct 40.6 MCV 85.7 MCH 27.8 MCHC 32.5 L RDW 15.5 H Plt Count 214 PT 12.9 INR 1.3 H APTT 25.5 L pCO2 pO2 HCO3 ABG pH ABG Total CO2 ABG O2 Saturation ABG O2 Content ABG Base Excess ABG Hemoglobin ABG Carboxyhemoglobin POC ABG HHb (Measured) ABG Methemoglobin ABG O2 Capacity Eugenio Test A-a O2 Difference Hgb O2 Saturation Vent Mode Mechanical Rate FiO2 Tidal Volume PEEP Sodium 139 Potassium 3.9 Chloride 104 Carbon Dioxide 24 Anion Gap 15 BUN 10 Creatinine 0.7 Est GFR ( Amer) > 60 Est GFR (Non-Af Amer) > 60 Random Glucose 156 H Calcium 7.9 L Urine Color Urine Clarity Urine pH Ur Specific [place] Urine Protein Urine Glucose (UA) Urine Ketones Urine Blood Urine Nitrate Urine Bilirubin Urine Urobilinogen Ur Leukocyte Esterase Urine RBC (Auto) Ur Squamous Epith Cells Amorphous Sediment Blood Type Antibody Screen BBK History Checked Assessment & Plan (1) Failed intubation of airway Status: Acute Priority: High Comment: Reintubated and mechanically ventilated overnight. Appears ready for extubation again this morning. Will briefly place on T-bar ventilation. Cuff leak test. (2) CAD (coronary artery disease) Status: Chronic Priority: High (3) Osteoarthritis of right knee Status: Chronic Priority: High - Date & Time Date: 07/06/17 Time: 10:40
[2017-07-06] MEDS: Pantoprazole 40 mg Susp UD NG SCH (11:29)
[2017-07-06] MEDS: Enoxaparin 40 mg Syringe SC SCH (12:42)
[2017-07-06] MEDS: Pravastatin Sodium 20 MG TAB PO SCH (12:43)
--- NOTE | 2017-07-06 12:59 | CARD ---
APPROVED REPORT EKG Measurement Heart [id number] <Conclusion> Normal sinus rhythm Left anterior fascicular block T wave abnormality, consider anterolateral ischemia Prolonged QT Abnormal ECG
--- NOTE | 2017-07-06 14:20 | CP.CCUPN ---
CCU Subjective - Physician Review Subjective (Free Text): Awake and alert, no distress. Tolerated MV weans and extubated several hours ago after Precedex infusion was stopped. No agitation now, hemodynamics have improved after discontinuation of Precedex and ETT removal. She denies any new pain, very minimal movement of RLE noted. No other focal weakness or deficit noted. Discussed last nights events with Anesthesiologists Drs. Carrington and Stephan, discussed case with Drs. Moreno and Vero as well. Other vitals and I/O's reviewed. Had recurrent low grade temps overnight. ROS: No other pertinent negs or positives on 10+ system review. PMSFH: All Nursing and physician documentation reviewed to date; no new pertinent info noted relevant to current medical problems. MAJOR PROBLEMS: 1. Acute Resp Insuff 2 possible Delirium 2. s/p R TKR 3. h/o CAD 4. h/o HTN PLAN: 1. Cautious anxiolytic and sedative use. 2. Post op abx and DVT prx as per Ortho. 3. Check 12 lead EKG. 4. Stable for transfer to regular post-op surgical bed. 5. Start PT as tolerated. CCU Objective - Vital Signs / Intake & Output Vital Signs (Last 4 hours): Vital Signs Temp Pulse Resp BP Pulse Ox 07/06/17 12:00 98.8 F 63 15 100/61 99 Intake and Output (Last 8hrs): Intake & Output 07/05/17 07/06/17 07/06/17 22:59 06:59 14:59 Intake Total 1000 630 210 Output Total 950 Balance 1000 -320 210 Intake: IV 1000 530 Intake, Piggyback 100 110 Oral 100 Output: Urine 950 Urine, Voided 950 Other: # Bowel Movements 0 - Physical Exam Head: Positive for: Normocephalic Pupils: Positive for: PERRL Extroacular Muscles: Positive for: EOMI Conjunctiva: Negative for: Injected, Icteric Mouth: Positive for: Moist Mucous Membranes Neck: Negative for: JVD Respiratory/Chest: Positive for: Clear to Auscultation. Negative for: Accessory Muscle Use, Wheezes Cardiovascular: Positive for: Regular Rate and Rhythm Abdomen: Positive for: Normal Bowel Sounds. Negative for: Tenderness, Distention Lower Extremity: Positive for: NORMAL PULSES. Negative for: Edema, CALF TENDERNESS, Cyanosis Neurological: Positive for: GCS=15, Normal Sensory Function. Negative for: Motor Func Grossly Intact Skin: Positive for: Warm. Negative for: Rashes - Medications Active Medications: Active Medications Generic Name Dose Route Start Last Admin Trade Name Freq PRN Reason Stop Dose Admin Donepezil HCl 10 mg 07/06/17 09:00 07/06/17 12:43 Aricept PO 10 mg DAILY [facility] Administration Enoxaparin Sodium 40 mg 07/06/17 09:00 07/06/17 12:42 Lovenox SC 40 mg DAILY [facility] Administration Protocol Hydromorphone HCl 1 mg 07/06/17 07:45 07/06/17 08:41 Dilaudid IVP 1 mg Q4 PRN Administration Pain, moderate (4-7) Sodium Chloride 1,000 mls @ 20 mls/hr 07/06/17 02:25 07/06/17 02:30 Sodium Chloride 0.9% IV 07/06/17 23:34 20 mls/hr .Q24H [facility] Administration Levothyroxine Sodium 50 mcg 07/06/17 09:00 07/06/17 08:30 Synthroid IVP 50 mcg DAILY [facility] Administration Memantine 10 mg 07/06/17 09:00 07/06/17 12:43 Namenda PO 10 mg DAILY [facility] Administration Pantoprazole Sodium 40 mg 07/06/17 09:00 07/06/17 11:29 Protonix Susp NG Not Given DAILY [facility] Pravastatin Sodium 20 mg 07/06/17 09:00 07/06/17 12:43 Pravachol PO 20 mg DAILY [facility] Administration Sertraline HCl 25 mg 07/06/17 09:00 07/06/17 10:09 Zoloft PO Not Given DAILY [facility] - Patient Studies Lab Studies: Lab Studies 07/06/17 07/06/17 07/06/17 Range/Units 04:25 04:25 04:25 WBC 10.3 (4.8-10.8) K/uL RBC 4.73 (3.80-5.20) Mil/uL Hgb 13.2 (12.0-16.0) g/dL Hct 40.6 (34.0-47.0) % MCV 85.7 (81.0-99.0) fl MCH 27.8 (27.0-31.0) pg MCHC 32.5 L (33.0-37.0) g/dL RDW 15.5 H (11.5-14.5) % Plt Count 214 (130-400) K/uL PT 12.9 (9.8-13.1) Seconds INR 1.3 H (0.9-1.2) APTT 25.5 L (25.6-37.1) Seconds pCO2 (35-45) mm/Hg pO2 (80-100) mm/Hg HCO3 (21-28) mmol/L ABG pH (7.35-7.45) ABG Total CO2 (22-28) mmol/L ABG O2 Saturation (95-98) % ABG O2 Content (15-23) ML/dL ABG Base Excess (-2.0-3.0) mmol/L ABG Hemoglobin (11.7-17.4) g/dL ABG Carboxyhemoglobin (0.5-1.5) % POC ABG HHb (Measured) (0.0-5.0) % ABG Methemoglobin (0.0-3.0) % ABG O2 Capacity (16-24) mL/dL Eugenio Test A-a O2 Difference mm/Hg Hgb O2 Saturation (95.0-98.0) % Vent Mode Mechanical Rate FiO2 % Tidal Volume PEEP Sodium 139 (132-148) mmol/l Potassium 3.9 (3.6-5.0) MMOL/L Chloride 104 (98-107) mmol/L Carbon Dioxide 24 (22-30) mmol/L Anion Gap 15 (10-20) BUN 10 (7-17) mg/dl Creatinine 0.7 (0.7-1.2) mg/dL Est GFR ( Amer) > 60 Est GFR (Non-Af Amer) > 60 Random Glucose 156 H (65-105) mg/dL Calcium 7.9 L (8.4-10.2) mg/dL 07/06/17 Range/Units 04:12 WBC (4.8-10.8) K/uL RBC (3.80-5.20) Mil/uL Hgb (12.0-16.0) g/dL Hct (34.0-47.0) % MCV (81.0-99.0) fl MCH (27.0-31.0) pg MCHC (33.0-37.0) g/dL RDW (11.5-14.5) % Plt Count (130-400) K/uL PT (9.8-13.1) Seconds INR (0.9-1.2) APTT (25.6-37.1) Seconds pCO2 39 (35-45) mm/Hg pO2 92 (80-100) mm/Hg HCO3 25.0 (21-28) mmol/L ABG pH 7.41 (7.35-7.45) ABG Total CO2 25.9 (22-28) mmol/L ABG O2 Saturation 98.8 H (95-98) % ABG O2 Content 17.9 (15-23) ML/dL ABG Base Excess 0.1 (-2.0-3.0) mmol/L ABG Hemoglobin 13.3 (11.7-17.4) g/dL ABG Carboxyhemoglobin 1.5 (0.5-1.5) % POC ABG HHb (Measured) 1.2 (0.0-5.0) % ABG Methemoglobin 1.7 (0.0-3.0) % ABG O2 Capacity 18.1 (16-24) mL/dL Eugenio Test Yes A-a O2 Difference 287.0 mm/Hg Hgb O2 Saturation 95.5 (95.0-98.0) % Vent Mode A/c Mechanical Rate 10 FiO2 60.0 % Tidal Volume 400 PEEP 5 Sodium (132-148) mmol/l Potassium (3.6-5.0) MMOL/L Chloride (98-107) mmol/L Carbon Dioxide (22-30) mmol/L Anion Gap (10-20) BUN (7-17) mg/dl Creatinine (0.7-1.2) mg/dL Est GFR ( Amer) Est GFR (Non-Af Amer) Random Glucose (65-105) mg/dL Calcium (8.4-10.2) mg/dL Laboratory Results - last 24 hr 07/06/17 07/06/17 07/06/17 04:12 04:25 04:25 WBC 10.3 RBC 4.73 Hgb 13.2 Hct 40.6 MCV 85.7 MCH 27.8 MCHC 32.5 L RDW 15.5 H Plt Count 214 PT 12.9 INR 1.3 H APTT 25.5 L pCO2 39 pO2 92 HCO3 25.0 ABG pH 7.41 ABG Total CO2 25.9 ABG O2 Saturation 98.8 H ABG O2 Content 17.9 ABG Base Excess 0.1 ABG Hemoglobin 13.3 ABG Carboxyhemoglobin 1.5 POC ABG HHb (Measured) 1.2 ABG Methemoglobin 1.7 ABG O2 Capacity 18.1 Eugenio Test Yes A-a O2 Difference 287.0 Hgb O2 Saturation 95.5 Vent Mode A/c Mechanical Rate 10 FiO2 60.0 Tidal Volume 400 PEEP 5 Sodium Potassium Chloride Carbon Dioxide Anion Gap BUN Creatinine Est GFR ( Amer) Est GFR (Non-Af Amer) Random Glucose Calcium 07/06/17 04:25 WBC RBC Hgb Hct MCV MCH MCHC RDW Plt Count PT INR APTT pCO2 pO2 HCO3 ABG pH ABG Total CO2 ABG O2 Saturation ABG O2 Content ABG Base Excess ABG Hemoglobin ABG Carboxyhemoglobin POC ABG HHb (Measured) ABG Methemoglobin ABG O2 Capacity Eugenio Test A-a O2 Difference Hgb O2 Saturation Vent Mode Mechanical Rate FiO2 Tidal Volume PEEP Sodium 139 Potassium 3.9 Chloride 104 Carbon Dioxide 24 Anion Gap 15 BUN 10 Creatinine 0.7 Est GFR ( Amer) > 60 Est GFR (Non-Af Amer) > 60 Random Glucose 156 H Calcium 7.9 L EKG/Cardiology Studies: Cardiology / EKG Studies 07/06/17 EKG [ELECTROCARDIOGRAM] Routine Comment: Mode Of Transportation: PORTABLE Reason For Exam: CAD HX
--- NOTE | 2017-07-06 15:22 | RAD ---
HISTORY: Post intubation COMPARISON: No prior. FINDINGS: LUNGS: Examination is somewhat limited due to patient rotation to the right side In situ ETT, tip of which lies approximately 3.16 cm above steve. Suspect mild left lower lobe and or infiltrate. PLEURA: No significant pleural effusion identified, no pneumothorax apparent. CARDIOVASCULAR: Heart size difficult to assess due to patient rotation of does appear borderline/mildly enlarged. Aorta ectatic and uncoiled. OSSEOUS STRUCTURES: No significant abnormalities. VISUALIZED UPPER ABDOMEN: Normal. OTHER FINDINGS: None. IMPRESSION: ETT as above. Suspect mild left lower lobe atelectasis and or infiltrate
--- NOTE | 2017-07-06 15:24 | RAD ---
PROCEDURE: Right knee dated 07/05/2017 HISTORY: Status post R TKR COMPARISON: No prior study available comparison. FINDINGS: BONES: Status post right total knee arthroplasty. Hardware appears intact. There is satisfactory alignment. . Expected unremarkable postoperative changes within the surrounding soft tissues. Small joint effusion IMPRESSION: Status post right total knee arthroplasty with satisfactory alignment.
--- NOTE | 2017-07-06 16:55 | CP.PCM.PN ---
Subjective - Date & Time of Evaluation Date of Evaluation: 07/06/17 Time of Evaluation: 13:00 - Subjective Subjective: Pt seen and examined. Successfully extubated and able to had PT. Denied any complaint. Objective - Vital Signs/Intake and Output Vital Signs (last 24 hours): Temp Pulse Resp BP Pulse Ox 98.3 F 80 28 H 111/47 L 100 07/06/17 15:48 07/06/17 15:48 07/06/17 15:48 07/06/17 15:48 07/06/17 15:48 Intake and Output: 07/06/17 07/06/17 06:59 18:59 Intake Total 630 220 Output Total 950 Balance -320 220 - Medications Medications: Current Medications Donepezil HCl (Aricept) 10 mg PO DAILY [facility] Last Admin: 07/06/17 12:43 Dose: 10 mg Enoxaparin Sodium (Lovenox) 40 mg SC DAILY [facility] PRN Reason: Protocol Last Admin: 07/06/17 12:42 Dose: 40 mg Hydromorphone HCl (Dilaudid) 1 mg IVP Q4 PRN PRN Reason: Pain, moderate (4-7) Last Admin: 07/06/17 08:41 Dose: 1 mg Sodium Chloride (Sodium Chloride 0.9%) 1,000 mls @ 20 mls/hr IV .Q24H [facility] Stop: 07/06/17 23:34 Last Admin: 07/06/17 02:30 Dose: 20 mls/hr Levothyroxine Sodium (Synthroid) 50 mcg IVP DAILY [facility] Last Admin: 07/06/17 08:30 Dose: 50 mcg Memantine (Namenda) 10 mg PO DAILY [facility] Last Admin: 07/06/17 12:43 Dose: 10 mg Pantoprazole Sodium (Protonix Susp) 40 mg NG DAILY [facility] Last Admin: 07/06/17 11:29 Dose: Not Given Pravastatin Sodium (Pravachol) 20 mg PO DAILY [facility] Last Admin: 07/06/17 12:43 Dose: 20 mg Sertraline HCl (Zoloft) 25 mg PO DAILY [facility] Last Admin: 07/06/17 10:09 Dose: Not Given - Labs Labs: 07/06/17 04:25 07/06/17 04:25 PT 12.9 Seconds (9.8-13.1) 07/06/17 04:25 INR 1.3 (0.9-1.2) H 07/06/17 04:25 APTT 25.5 Seconds (25.6-37.1) L 07/06/17 04:25 - Constitutional Appears: No Acute Distress - Head Exam Head Exam: ATRAUMATIC - Eye Exam Eye Exam: absent: Scleral icterus - ENT Exam ENT Exam: Mucous Membranes Moist - Neck Exam Neck Exam: absent: Meningismus - Respiratory Exam Respiratory Exam: absent: Rhonchi, Wheezes, Respiratory Distress - Cardiovascular Exam Cardiovascular Exam: REGULAR RHYTHM, +S1, +S2 - GI/Abdominal Exam GI & Abdominal Exam: Soft. absent: Tenderness - Rectal Exam Rectal Exam: Deferred - Extremities Exam Extremities Exam: absent: Full ROM (limited ROM on right knee, post TKR) - Neurological Exam Neurological Exam: Alert - Psychiatric Exam Psychiatric exam: Normal Affect - Skin Skin Exam: Dry, Intact Assessment and Plan (1) Osteoarthritis of right knee Status: Chronic (2) CAD (coronary artery disease) Status: Chronic (3) HTN (hypertension) Status: Chronic (4) Dementia Status: Chronic (5) Hypothyroid Status: Chronic - Assessment and Plan (Free Text) Assessment: 86 yo female with history of CAD (PR 10 yrs ago), HTN, Dementia, Osteoporosis and OA hd elective right TKR 07/05/2017 after failing conservative management. Developed O2 desaturation after getting extubated post surgery requiring re- intubation and maintained on mechanical ventilation overnight. She was successfully extubated earlier today. 1. OA of Right Knee S/P Right TKR, 1st POD continue pain management and PT 2. CAD resume Isosorbide Mononitrate and statin 3. HTN BP stable continue Enalapril/HCTZ 4. Dementia resume Donepezil and Memantine 5. Hypothyroid resume Levothyroxine 100mcg PO daily
[2017-07-06] MEDS ORDERED: HYDROmorphone 0.5 mg/0.5 ml ISec IVP PRN (23:00)
[2017-07-07] MEDS: Levothyroxine 100 MCG TAB PO SCH (06:32)
[2017-07-07] MEDS ORDERED: Albuterol-Ipratrop 3 mg / 0.5 (3 ml) UD INH PRN (06:44)
[2017-07-07] MEDS ORDERED: ALENDRONATE 70 MG TAB PO SCH (07:00)
[2017-07-07] MEDS: Enoxaparin 40 mg Syringe SC SCH (08:51)
[2017-07-07] MEDS: Pravastatin Sodium 20 MG TAB PO SCH (08:51)
[2017-07-07] MEDS: Pantoprazole 40 mg Susp UD NG SCH (08:52)
[2017-07-07] MEDS ORDERED: ENALAPRIL PO SCH (09:00)
[2017-07-07] MEDS ORDERED: HYDROCHLOROTHIAZIDE PO SCH (09:00)
--- NOTE | 2017-07-07 10:24 | CP.PCM.PN ---
Subjective - Date & Time of Evaluation Date of Evaluation: 07/07/17 Time of Evaluation: 10:22 - Subjective Subjective: Transferred to regular medical floor. Still has oxygen via venti-mask @ 50%. SpO2 95% on the above. Denies any dyspnea or coughing. Has been afebrile, SpO2 is relatively low for the amount of supplemental oxygen. CXR done this morning shows both lungs are expanded, but the mediastinum may be shifted. There is no pre-op chest film available for comparison. Semi-erect in bed, awake and cooperative. No dullness on percussion of the anterior chest wall. Breath sounds are present bilaterally with dry rales in the RLL posteriorly. No audible wheezing or bronchial breathing. Will request CT chest w/o contrast to evaluate the right lung expansion and any areas of atelectasis. Placed on nasal canula at 4LPM with humidification. Incentive spirometry. Objective - Vital Signs/Intake and Output Vital Signs (last 24 hours): Temp Pulse Resp BP Pulse Ox 99.5 F 100 H 19 122/76 93 L 07/07/17 08:00 07/07/17 08:00 07/07/17 08:00 07/07/17 08:00 07/07/17 08:00 Intake and Output: 07/06/17 07/07/17 23:59 11:59 Intake Total 430 180 Output Total 150 200 Balance 280 -20 - Medications Medications: Current Medications Albuterol/Ipratropium (Duoneb 3 Mg/0.5 Mg (3 Ml) Ud) 3 ml INH RQ6 PRN PRN Reason: Shortness of Breath Last Admin: 07/07/17 07:14 Dose: 3 ml Alendronate Sodium (Fosamax) 70 mg PO QWK [facility] Donepezil HCl (Aricept) 10 mg PO DAILY [facility] Last Admin: 07/07/17 08:51 Dose: 10 mg Enalapril Maleate (Vasotec) 5 mg PO DAILY [facility] Last Admin: 07/07/17 08:51 Dose: 5 mg Enoxaparin Sodium (Lovenox) 40 mg SC DAILY [facility] PRN Reason: Protocol Last Admin: 07/07/17 08:51 Dose: 40 mg Gabapentin (Neurontin) 400 mg PO DAILY [facility] Last Admin: 07/07/17 08:50 Dose: 400 mg Hydrochlorothiazide (Microzide) 12.5 mg PO DAILY [facility] Last Admin: 07/07/17 08:51 Dose: 12.5 mg Hydromorphone HCl (Dilaudid) 1 mg IVP Q4 PRN PRN Reason: Pain, moderate (4-7) Last Admin: 07/06/17 23:00 Dose: 1 mg Isosorbide Mononitrate (Imdur Er) 30 mg PO DAILY [facility] Last Admin: 07/07/17 08:51 Dose: 30 mg Levothyroxine Sodium (Synthroid) 100 mcg PO DAILY@0630 [facility] Last Admin: 07/07/17 06:32 Dose: 100 mcg Memantine (Namenda) 10 mg PO DAILY [facility] Last Admin: 07/07/17 08:52 Dose: 10 mg Pantoprazole Sodium (Protonix Susp) 40 mg NG DAILY [facility] Last Admin: 07/07/17 08:52 Dose: 40 mg Pravastatin Sodium (Pravachol) 20 mg PO DAILY [facility] Last Admin: 07/07/17 08:51 Dose: 20 mg Sertraline HCl (Zoloft) 25 mg PO DAILY [facility] Last Admin: 07/07/17 08:50 Dose: 25 mg - Labs Labs: 07/06/17 04:25 07/06/17 04:25 PT 12.9 Seconds (9.8-13.1) 07/06/17 04:25 INR 1.3 (0.9-1.2) H 07/06/17 04:25 APTT 25.5 Seconds (25.6-37.1) L 07/06/17 04:25 Assessment and Plan (1) Failed intubation of airway Status: Acute (2) CAD (coronary artery disease) Status: Chronic (3) Osteoarthritis of right knee Status: Chronic
--- NOTE | 2017-07-07 11:10 | CP.PCM.PN ---
Subjective - Date & Time of Evaluation Date of Evaluation: 07/07/17 Time of Evaluation: 11:07 - Subjective Subjective: Patient on 50% VM saturating 97%, no respiratory distress, appears comfortable. VSS. NAD. No complaints at this time discussed [facility] Dr. Pham, will switch to [place] 4L for CT Chest w/o contrast and IC Objective - Vital Signs/Intake and Output Vital Signs (last 24 hours): Temp Pulse Resp BP Pulse Ox 99.5 F 100 H 19 122/76 93 L 07/07/17 08:00 07/07/17 08:00 07/07/17 08:00 07/07/17 08:00 07/07/17 08:00 Intake and Output: 07/07/17 07/07/17 06:59 18:59 Intake Total 180 Output Total 200 Balance -20 - Medications Medications: Current Medications Albuterol/Ipratropium (Duoneb 3 Mg/0.5 Mg (3 Ml) Ud) 3 ml INH RQ6 PRN PRN Reason: Shortness of Breath Last Admin: 07/07/17 07:14 Dose: 3 ml Alendronate Sodium (Fosamax) 70 mg PO QWK [facility] Donepezil HCl (Aricept) 10 mg PO DAILY [facility] Last Admin: 07/07/17 08:51 Dose: 10 mg Enalapril Maleate (Vasotec) 5 mg PO DAILY [facility] Last Admin: 07/07/17 08:51 Dose: 5 mg Enoxaparin Sodium (Lovenox) 40 mg SC DAILY [facility] PRN Reason: Protocol Last Admin: 07/07/17 08:51 Dose: 40 mg Gabapentin (Neurontin) 400 mg PO DAILY [facility] Last Admin: 07/07/17 08:50 Dose: 400 mg Hydrochlorothiazide (Microzide) 12.5 mg PO DAILY [facility] Last Admin: 07/07/17 08:51 Dose: 12.5 mg Hydromorphone HCl (Dilaudid) 1 mg IVP Q4 PRN PRN Reason: Pain, moderate (4-7) Last Admin: 07/06/17 23:00 Dose: 1 mg Isosorbide Mononitrate (Imdur Er) 30 mg PO DAILY [facility] Last Admin: 07/07/17 08:51 Dose: 30 mg Levothyroxine Sodium (Synthroid) 100 mcg PO DAILY@0630 [facility] Last Admin: 07/07/17 06:32 Dose: 100 mcg Memantine (Namenda) 10 mg PO DAILY [facility] Last Admin: 07/07/17 08:52 Dose: 10 mg Pantoprazole Sodium (Protonix Susp) 40 mg NG DAILY [facility] Last Admin: 07/07/17 08:52 Dose: 40 mg Pravastatin Sodium (Pravachol) 20 mg PO DAILY [facility] Last Admin: 07/07/17 08:51 Dose: 20 mg Sertraline HCl (Zoloft) 25 mg PO DAILY [facility] Last Admin: 07/07/17 08:50 Dose: 25 mg - Labs Labs: 07/06/17 04:25 07/06/17 04:25 PT 12.9 Seconds (9.8-13.1) 07/06/17 04:25 INR 1.3 (0.9-1.2) H 07/06/17 04:25 APTT 25.5 Seconds (25.6-37.1) L 07/06/17 04:25 - Constitutional Appears: Non-toxic, No Acute Distress - Head Exam Head Exam: ATRAUMATIC, NORMOCEPHALIC - Eye Exam Eye Exam: EOMI, Normal appearance, PERRL Pupil Exam: NORMAL ACCOMODATION - ENT Exam ENT Exam: Mucous Membranes Moist, Normal Oropharynx - Respiratory Exam Respiratory Exam: Clear to Ausculation Bilateral, NORMAL BREATHING PATTERN. absent: Wheezes, Respiratory Distress - Cardiovascular Exam Cardiovascular Exam: RRR, +S1, +S2 - GI/Abdominal Exam GI & Abdominal Exam: Soft, Normal Bowel Sounds. absent: Tenderness, Organomegaly - Extremities Exam Extremities Exam: Normal Capillary Refill. absent: Calf Tenderness - Back Exam Back Exam: absent: CVA tenderness (L), CVA tenderness (R) - Neurological Exam Neurological Exam: Alert, Awake, Oriented x3 - Psychiatric Exam Psychiatric exam: Normal Affect, Normal Mood - Skin Skin Exam: Dry, Warm Assessment and Plan - Assessment and Plan (Free Text) Plan: 86 yo female with history of CAD ([place] 10 yrs ago), HTN, Dementia, Osteoporosis and OA hd elective right TKR 07/05/2017 after failing conservative management. Developed O2 desaturation after getting extubated post surgery requiring re- intubation and maintained on mechanical ventilation overnight. She was successfully extubated and subsequently transferred to [facility]. OA of Right Knee S/P Right TKR, 1st POD continue pain management HYDROmorphone [Dilaudid] 1 mg IVP Q4 PRN Gabapentin [Neurontin] 400 mg PO DAILY physical therapy recommendation: Acute Rehab lovenox 40 mg sc daily S/P Respiratory failure Currently on 4LPM, from 50% VM this morning, was saturating 97% CXR today b/l expansion continue Duonebs for CT Chest without contrast per pulmonology Discussed with Dr. Pham Pulmonology Consult appreciated and followed CAD resume Isosorbide Mononitrate and Pravachol HTN BP stable continue Enalapril/HCTZ Dementia resume Donepezil and Memantine and Zoloft Hypothyroid resume Levothyroxine 100mcg PO daily PPX Pantoprazole [Protonix Susp] 40 mg NG DAILY lovenox 40 mg sc daily
--- NOTE | 2017-07-07 13:02 | RAD ---
HISTORY: Hypoxemia COMPARISON: No prior. FINDINGS: LUNGS: No active pulmonary disease. PLEURA: Small right pleural effusion. CARDIOVASCULAR: Cardiomegaly with an atherosclerotic aorta. . OSSEOUS STRUCTURES: No significant abnormalities. VISUALIZED UPPER ABDOMEN: Normal. OTHER FINDINGS: None. IMPRESSION: Small right pleural effusions versus pleural thickening. Cardiomegaly.
[2017-07-07] MEDS ORDERED: Oxycodone/Acetaminophen 5/325 mg Tab PO PRN (14:32)
[2017-07-07] MEDS: Oxycodone/Acetaminophen 5/325 mg Tab PO PRN ×2 (14:55→22:01)
--- NOTE | 2017-07-07 15:58 | CP.PCM.PN ---
Subjective - Date & Time of Evaluation Date of Evaluation: 07/07/17 Time of Evaluation: 15:55 - Subjective Subjective: S- pt comforatble at tiome of encounter Objective - Vital Signs/Intake and Output Vital Signs (last 24 hours): Temp Pulse Resp BP Pulse Ox 99.5 F 100 H 19 122/76 93 L 07/07/17 08:00 07/07/17 08:00 07/07/17 08:00 07/07/17 08:00 07/07/17 08:00 Intake and Output: 07/07/17 07/07/17 06:59 18:59 Intake Total 180 Output Total 200 Balance -20 - Medications Medications: Current Medications Albuterol/Ipratropium (Duoneb 3 Mg/0.5 Mg (3 Ml) Ud) 3 ml INH RQ6 PRN PRN Reason: Shortness of Breath Last Admin: 07/07/17 07:14 Dose: 3 ml Alendronate Sodium (Fosamax) 70 mg PO QWK [facility] Donepezil HCl (Aricept) 10 mg PO DAILY [facility] Last Admin: 07/07/17 08:51 Dose: 10 mg Enalapril Maleate (Vasotec) 5 mg PO DAILY [facility] Last Admin: 07/07/17 08:51 Dose: 5 mg Enoxaparin Sodium (Lovenox) 40 mg SC DAILY [facility] PRN Reason: Protocol Last Admin: 07/07/17 08:51 Dose: 40 mg Gabapentin (Neurontin) 400 mg PO DAILY [facility] Last Admin: 07/07/17 08:50 Dose: 400 mg Hydrochlorothiazide (Microzide) 12.5 mg PO DAILY [facility] Last Admin: 07/07/17 08:51 Dose: 12.5 mg Isosorbide Mononitrate (Imdur Er) 30 mg PO DAILY [facility] Last Admin: 07/07/17 08:51 Dose: 30 mg Levothyroxine Sodium (Synthroid) 100 mcg PO DAILY@0630 [facility] Last Admin: 07/07/17 06:32 Dose: 100 mcg Memantine (Namenda) 10 mg PO DAILY [facility] Last Admin: 07/07/17 08:52 Dose: 10 mg Oxycodone/Acetaminophen (Percocet 5/325 Mg Tab) 1 tab PO Q6 PRN PRN Reason: Pain, moderate (4-7) Stop: 07/10/17 14:33 Last Admin: 07/07/17 14:55 Dose: 1 tab Oxycodone/Acetaminophen (Percocet 5/325 Mg Tab) 2 tab PO Q6 PRN PRN Reason: Pain, severe (8-10) Stop: 07/10/17 14:33 Pantoprazole Sodium (Protonix Susp) 40 mg NG DAILY [facility] Last Admin: 07/07/17 08:52 Dose: 40 mg Pravastatin Sodium (Pravachol) 20 mg PO DAILY [facility] Last Admin: 07/07/17 08:51 Dose: 20 mg Sertraline HCl (Zoloft) 25 mg PO DAILY [facility] Last Admin: 07/07/17 08:50 Dose: 25 mg - Labs Labs: 07/06/17 04:25 07/06/17 04:25 PT 12.9 Seconds (9.8-13.1) 07/06/17 04:25 INR 1.3 (0.9-1.2) H 07/06/17 04:25 APTT 25.5 Seconds (25.6-37.1) L 07/06/17 04:25 - Skin Additional comments: Objective systemic- wnl pt with no difficulyt breathing at bedrest at time of encounter/no sternal retarctions or dyspnea Musculoskekltal: stance/gait- deferred dressing dry and intact CPM applied no calf tendernessd Assessment and Plan - Assessment and Plan (Free Text) Assessment: A- s/p R TKR P orthopedically stable awaiting results of chest CT DR Pham on pulmonary consult
--- NOTE | 2017-07-07 16:19 | CT ---
PROCEDURE: CT Chest without contrast HISTORY: hypoxia COMPARISON: None. TECHNIQUE: Contiguous axial images were obtained through the chest without intravenous contrast enhancement. Sagittal and coronal reconstructions were performed. Radiation dose (DLP): 707 mGy-cm. This CT exam was performed using one or more of the following dose reduction techniques: Automated exposure control, adjustment of the mA and/or kV according to patient size, and/or use of iterative reconstruction technique. FINDINGS: LUNGS: Bibasilar pneumonia/consolidation, right greater than left. MEDIASTINUM: Ectatic ascending aorta with tracheal deviation to the right. Normal sized heart. Main pulmonary artery unremarkable. No vascular congestion. No lymphadenopathy. PLEURA: No pleural fluid. No pneumothorax. BONES: No fracture. No destructive lesion. UPPER ABDOMEN: 1.2 centimeter right upper pole hemorrhagic/ proteinaceous debris filled cyst. OTHER FINDINGS: Small hiatal hernia. . IMPRESSION: Bibasilar pneumonia/consolidation.
[2017-07-07] MEDS: Albuterol-Ipratrop 3 mg / 0.5 (3 ml) UD INH SCH ×2 (19:15→21:00)
[2017-07-07] MEDS: Cefepime 1 GM in Sodium Chloride 0.9% 100 ML IVPB SCH (20:42)
[2017-07-08] MEDS: Albuterol-Ipratrop 3 mg / 0.5 (3 ml) UD INH SCH ×7 (02:21→23:28)
[2017-07-08 07:10] LABS: HEMATOCRIT 32.3 % (34.0-47.0); MEAN CELL VOLUME 86.1 fl (81.0-99.0); MEAN CORPUSCULAR HEMOGLOBIN 28.2 pg (27.0-31.0); MEAN CORPUSCULAR HGB CONC 32.8 g/dL (33.0-37.0); RED CELL DISTRIBUTION WIDTH 15.4 % (11.5-14.5); WHITE BLOOD COUNT 10.8 K/uL (4.8-10.8)
[2017-07-08] MEDS: Cefepime 1 GM in Sodium Chloride 0.9% 100 ML IVPB SCH ×2 (08:14→20:18)
[2017-07-08] MEDS: Pantoprazole 40 mg Susp UD NG SCH (08:18)
[2017-07-08] MEDS: Levothyroxine 100 MCG TAB PO SCH (08:22)
[2017-07-08] MEDS: Enoxaparin 40 mg Syringe SC SCH (08:23)
[2017-07-08] MEDS: Pravastatin Sodium 20 MG TAB PO SCH (08:23)
[2017-07-08] MEDS: guaiFENesin 600 mg ER Tab PO SCH ×2 (08:36→20:20)
[2017-07-08 09:09] LABS: ALKALINE PHOSPHATASE 81 U/L (38-126); ALT/SGPT 25 U/L (9-52); AST/SGOT 28 U/L (14-36); BILIRUBIN,TOTAL 0.9 mg/dl (0.2-1.3); BLOOD UREA NITROGEN 14 mg/dl (7-17); CALCIUM 7.4 mg/dL (8.4-10.2); CARBON DIOXIDE 24 mmol/L (22-30); CHLORIDE 101 mmol/L (98-107); GFR AFRICAN-AMERICAN > 60; GLUCOSE,RANDOM 120 mg/dL (65-105); POTASSIUM 3.4 MMOL/L (3.6-5.0); SODIUM 135 mmol/l (132-148); TOTAL PROTEIN 5.5 G/DL (6.3-8.2)
--- NOTE | 2017-07-08 09:50 | CP.PCM.PN ---
Subjective - Date & Time of Evaluation Date of Evaluation: 07/08/17 Time of Evaluation: 09:45 - Subjective Subjective: S- pt comfortable awkae and alert; no difficulty breathing Objective - Vital Signs/Intake and Output Vital Signs (last 24 hours): Temp Pulse Resp BP Pulse Ox 97.8 F 84 20 110/62 96 07/08/17 07:51 07/08/17 07:51 07/08/17 07:51 07/08/17 07:51 07/08/17 07:51 Intake and Output: 07/08/17 07/08/17 06:59 18:59 Intake Total 240 Output Total 400 Balance -160 - Medications Medications: Current Medications Albuterol/Ipratropium (Duoneb 3 Mg/0.5 Mg (3 Ml) Ud) 3 ml INH RQ4 [facility] Last Admin: 07/08/17 07:57 Dose: 3 ml Alendronate Sodium (Fosamax) 70 mg PO QWK [facility] Donepezil HCl (Aricept) 10 mg PO DAILY [facility] Last Admin: 07/08/17 08:23 Dose: 10 mg Enalapril Maleate (Vasotec) 5 mg PO DAILY [facility] Last Admin: 07/08/17 08:23 Dose: 5 mg Enoxaparin Sodium (Lovenox) 40 mg SC DAILY [facility] PRN Reason: Protocol Last Admin: 07/08/17 08:23 Dose: 40 mg Gabapentin (Neurontin) 400 mg PO DAILY [facility] Last Admin: 07/08/17 08:20 Dose: 400 mg Guaifenesin (Mucinex La) 600 mg PO Q12 [facility] Last Admin: 07/08/17 08:36 Dose: 600 mg Hydrochlorothiazide (Microzide) 12.5 mg PO DAILY [facility] Last Admin: 07/08/17 08:22 Dose: 12.5 mg Cefepime HCl 1 gm/ Sodium (Chloride) 100 mls @ 100 mls/hr IVPB Q12 [facility] Last Admin: 07/08/17 08:14 Dose: 100 mls/hr Vancomycin HCl 1 gm/ Sodium (Chloride) 250 mls @ 166.667 mls/hr IVPB Q12@1000, 2200 [facility] Last Admin: 07/08/17 09:39 Dose: 166.667 mls/hr Isosorbide Mononitrate (Imdur Er) 30 mg PO DAILY [facility] Last Admin: 07/08/17 08:22 Dose: 30 mg Levothyroxine Sodium (Synthroid) 100 mcg PO DAILY@0630 [facility] Last Admin: 07/08/17 08:22 Dose: 100 mcg Memantine (Namenda) 10 mg PO DAILY [facility] Last Admin: 07/08/17 08:23 Dose: 10 mg Oxycodone/Acetaminophen (Percocet 5/325 Mg Tab) 1 tab PO Q6 PRN PRN Reason: Pain, moderate (4-7) Stop: 07/10/17 14:33 Last Admin: 07/07/17 22:01 Dose: 1 tab Oxycodone/Acetaminophen (Percocet 5/325 Mg Tab) 2 tab PO Q6 PRN PRN Reason: Pain, severe (8-10) Stop: 07/10/17 14:33 Pantoprazole Sodium (Protonix Susp) 40 mg NG DAILY [facility] Last Admin: 07/08/17 08:18 Dose: 40 mg Pravastatin Sodium (Pravachol) 20 mg PO DAILY [facility] Last Admin: 07/08/17 08:23 Dose: 20 mg Sertraline HCl (Zoloft) 25 mg PO DAILY [facility] Last Admin: 07/08/17 08:18 Dose: 25 mg - Labs Labs: 07/08/17 06:00 07/08/17 08:50 PT 12.9 Seconds (9.8-13.1) 07/06/17 04:25 INR 1.3 (0.9-1.2) H 07/06/17 04:25 APTT 25.5 Seconds (25.6-37.1) L 07/06/17 04:25 - Skin Additional comments: Objective 'stance/gait- defrred R knee dressing dry and intact orthopedically stabe stemically- no difficulty breathing \CT Chest reveals bibasilar pneumonia Assessment and Plan - Assessment and Plan (Free Text) Assessment: A- satisfactory TKR bibasial pneumonia CPM pulm f/u by Dr Pham
[2017-07-08] MEDS: Oxycodone/Acetaminophen 5/325 mg Tab PO PRN (10:33)
--- NOTE | 2017-07-08 10:50 | CP.PCM.PN ---
Subjective - Date & Time of Evaluation Date of Evaluation: 07/08/17 Time of Evaluation: 10:49 - Subjective Subjective: pt doing well no complaints vss nad Objective - Vital Signs/Intake and Output Vital Signs (last 24 hours): Temp Pulse Resp BP Pulse Ox 97.8 F 84 20 110/62 96 07/08/17 07:51 07/08/17 07:51 07/08/17 07:51 07/08/17 07:51 07/08/17 07:51 GEN: WDWN, alert, cooperative HEENT: NCAT, PERRL, EOMI NECK: supple, no JVD, no lymphadenopathy CARDIAC: +S1S2 RRR LUNG: CTAB No WRR ABD: SOFT NT ND BSX4 NO MASSES NO HSM EXT: +pedal pulses, warm well perfused NEURO: AAOx3 SKIN warm, dry PSYCH normal mood, normal affect Intake and Output: 07/08/17 07/08/17 06:59 18:59 Intake Total 240 Output Total 400 Balance -160 - Medications Medications: Current Medications Albuterol/Ipratropium (Duoneb 3 Mg/0.5 Mg (3 Ml) Ud) 3 ml INH RQ4 [facility] Last Admin: 07/08/17 07:57 Dose: 3 ml Alendronate Sodium (Fosamax) 70 mg PO QWK [facility] Donepezil HCl (Aricept) 10 mg PO DAILY [facility] Last Admin: 07/08/17 08:23 Dose: 10 mg Enalapril Maleate (Vasotec) 5 mg PO DAILY [facility] Last Admin: 07/08/17 08:23 Dose: 5 mg Enoxaparin Sodium (Lovenox) 40 mg SC DAILY [facility] PRN Reason: Protocol Last Admin: 07/08/17 08:23 Dose: 40 mg Gabapentin (Neurontin) 400 mg PO DAILY [facility] Last Admin: 07/08/17 08:20 Dose: 400 mg Guaifenesin (Mucinex La) 600 mg PO Q12 [facility] Last Admin: 07/08/17 08:36 Dose: 600 mg Hydrochlorothiazide (Microzide) 12.5 mg PO DAILY [facility] Last Admin: 07/08/17 08:22 Dose: 12.5 mg Cefepime HCl 1 gm/ Sodium (Chloride) 100 mls @ 100 mls/hr IVPB Q12 [facility] Last Admin: 07/08/17 08:14 Dose: 100 mls/hr Vancomycin HCl 1 gm/ Sodium (Chloride) 250 mls @ 166.667 mls/hr IVPB Q12@1000, 2200 [facility] Last Admin: 07/08/17 09:39 Dose: 166.667 mls/hr Isosorbide Mononitrate (Imdur Er) 30 mg PO DAILY [facility] Last Admin: 07/08/17 08:22 Dose: 30 mg Levothyroxine Sodium (Synthroid) 100 mcg PO DAILY@0630 [facility] Last Admin: 07/08/17 08:22 Dose: 100 mcg Memantine (Namenda) 10 mg PO DAILY [facility] Last Admin: 07/08/17 08:23 Dose: 10 mg Oxycodone/Acetaminophen (Percocet 5/325 Mg Tab) 1 tab PO Q6 PRN PRN Reason: Pain, moderate (4-7) Stop: 07/10/17 14:33 Last Admin: 07/08/17 10:33 Dose: 1 tab Oxycodone/Acetaminophen (Percocet 5/325 Mg Tab) 2 tab PO Q6 PRN PRN Reason: Pain, severe (8-10) Stop: 07/10/17 14:33 Pantoprazole Sodium (Protonix Susp) 40 mg NG DAILY [facility] Last Admin: 07/08/17 08:18 Dose: 40 mg Pravastatin Sodium (Pravachol) 20 mg PO DAILY [facility] Last Admin: 07/08/17 08:23 Dose: 20 mg Sertraline HCl (Zoloft) 25 mg PO DAILY [facility] Last Admin: 07/08/17 08:18 Dose: 25 mg - Labs Labs: 07/08/17 06:00 07/08/17 08:50 PT 12.9 Seconds (9.8-13.1) 07/06/17 04:25 INR 1.3 (0.9-1.2) H 07/06/17 04:25 APTT 25.5 Seconds (25.6-37.1) L 07/06/17 04:25 Assessment and Plan - Assessment and Plan (Free Text) Plan: 86 yo female with history of CAD ([place] 10 yrs ago), HTN, Dementia, Osteoporosis and OA hd elective right TKR 07/05/2017 after failing conservative management. Developed O2 desaturation after getting extubated post surgery requiring re- intubation and maintained on mechanical ventilation overnight. She was successfully extubated and subsequently transferred to [facility]. OA of Right Knee S/P Right TKR, 1st POD continue pain management HYDROmorphone [Dilaudid] 1 mg IVP Q4 PRN Gabapentin [Neurontin] 400 mg PO DAILY physical therapy recommendation: Acute Rehab lovenox 40 mg sc daily S/P Respiratory failure Currently on 4LPM, from 50% VM this morning, was saturating 97% CXR today b/l expansion continue Duone for CT Chest without contrast per pulmonology Discussed with Dr. Pham Pulmonology Consult appreciated and followed CAD resume Isosorbide Mononitrate and Pravachol HTN BP stable continue Enalapril/HCTZ Dementia resume Donepezil and Memantine and Zoloft Hypothyroid resume Levothyroxine 100mcg PO daily PPX Pantoprazole [Protonix Susp] 40 mg NG DAILY lovenox 40 mg sc daily
--- NOTE | 2017-07-08 10:56 | CP.PCM.PN ---
Subjective - Date & Time of Evaluation Date of Evaluation: 07/08/17 Time of Evaluation: 09:30 - Subjective Subjective: NO CHEST PAIN OR SOB FEELS OK Objective - Vital Signs/Intake and Output Vital Signs (last 24 hours): Temp Pulse Resp BP Pulse Ox 97.8 F 84 20 110/62 96 07/08/17 07:51 07/08/17 07:51 07/08/17 07:51 07/08/17 07:51 07/08/17 07:51 Intake and Output: 07/08/17 07/08/17 06:59 18:59 Intake Total 240 Output Total 400 Balance -160 - Medications Medications: Current Medications Albuterol/Ipratropium (Duoneb 3 Mg/0.5 Mg (3 Ml) Ud) 3 ml INH RQ4 [facility] Last Admin: 07/08/17 07:57 Dose: 3 ml Alendronate Sodium (Fosamax) 70 mg PO QWK [facility] Donepezil HCl (Aricept) 10 mg PO DAILY [facility] Last Admin: 07/08/17 08:23 Dose: 10 mg Enalapril Maleate (Vasotec) 5 mg PO DAILY [facility] Last Admin: 07/08/17 08:23 Dose: 5 mg Enoxaparin Sodium (Lovenox) 40 mg SC DAILY [facility] PRN Reason: Protocol Last Admin: 07/08/17 08:23 Dose: 40 mg Gabapentin (Neurontin) 400 mg PO DAILY [facility] Last Admin: 07/08/17 08:20 Dose: 400 mg Guaifenesin (Mucinex La) 600 mg PO Q12 [facility] Last Admin: 07/08/17 08:36 Dose: 600 mg Hydrochlorothiazide (Microzide) 12.5 mg PO DAILY [facility] Last Admin: 07/08/17 08:22 Dose: 12.5 mg Cefepime HCl 1 gm/ Sodium (Chloride) 100 mls @ 100 mls/hr IVPB Q12 [facility] Last Admin: 07/08/17 08:14 Dose: 100 mls/hr Vancomycin HCl 1 gm/ Sodium (Chloride) 250 mls @ 166.667 mls/hr IVPB Q12@1000, 2200 [facility] Last Admin: 07/08/17 09:39 Dose: 166.667 mls/hr Isosorbide Mononitrate (Imdur Er) 30 mg PO DAILY [facility] Last Admin: 07/08/17 08:22 Dose: 30 mg Levothyroxine Sodium (Synthroid) 100 mcg PO DAILY@0630 [facility] Last Admin: 07/08/17 08:22 Dose: 100 mcg Memantine (Namenda) 10 mg PO DAILY [facility] Last Admin: 07/08/17 08:23 Dose: 10 mg Oxycodone/Acetaminophen (Percocet 5/325 Mg Tab) 1 tab PO Q6 PRN PRN Reason: Pain, moderate (4-7) Stop: 07/10/17 14:33 Last Admin: 07/08/17 10:33 Dose: 1 tab Oxycodone/Acetaminophen (Percocet 5/325 Mg Tab) 2 tab PO Q6 PRN PRN Reason: Pain, severe (8-10) Stop: 07/10/17 14:33 Pantoprazole Sodium (Protonix Susp) 40 mg NG DAILY [facility] Last Admin: 07/08/17 08:18 Dose: 40 mg Pravastatin Sodium (Pravachol) 20 mg PO DAILY [facility] Last Admin: 07/08/17 08:23 Dose: 20 mg Sertraline HCl (Zoloft) 25 mg PO DAILY [facility] Last Admin: 07/08/17 08:18 Dose: 25 mg - Labs Labs: 07/08/17 06:00 07/08/17 08:50 PT 12.9 Seconds (9.8-13.1) 07/06/17 04:25 INR 1.3 (0.9-1.2) H 07/06/17 04:25 APTT 25.5 Seconds (25.6-37.1) L 07/06/17 04:25 - Respiratory Exam Respiratory Exam: Decreased Breath Sounds - Cardiovascular Exam Cardiovascular Exam: REGULAR RHYTHM, +S1, +S2 Assessment and Plan - Assessment and Plan (Free Text) Assessment: S/P RIGHT TKR CAD HYPERLIPIDEMIA Plan: CONTINUE ANTIBIOTICS, NITRATES, ENALAPROL, PRAVACHOL AND LOVENOX FOR PHYSICAL THERAPY
[2017-07-09] MEDS: Albuterol-Ipratrop 3 mg / 0.5 (3 ml) UD INH SCH ×6 (04:46→23:54)
[2017-07-09 06:48] LABS: BASO # 0.1 K/uL (0.0-0.2); BASO % 0.9 % (0.0-2.0); EOS # 0.2 K/uL (0.0-0.7); EOS % 1.6 % (0.0-4.0); HEMATOCRIT 31.2 % (34.0-47.0); LYMPH # 1.6 K/uL (1.0-4.3); LYMPH % 15.8 % (20.0-40.0); MEAN CELL VOLUME 85.5 fl (81.0-99.0); MEAN CORPUSCULAR HEMOGLOBIN 28.2 pg (27.0-31.0); MEAN PLATELET VOLUME 9.2 fl (7.2-11.7); MONO % 10.3 % (0.0-10.0); NEUT # 7.2 K/uL (1.8-7.0); NEUT % 71.4 % (50.0-75.0); RED CELL DISTRIBUTION WIDTH 15.3 % (11.5-14.5)
[2017-07-09 06:49] LABS: BLOOD UREA NITROGEN 12 mg/dl (7-17); CARBON DIOXIDE 26 mmol/L (22-30); CHLORIDE 100 mmol/L (98-107); GFR AFRICAN-AMERICAN > 60; GLUCOSE,RANDOM 133 mg/dL (65-105); MAGNESIUM 2.2 MG/DL (1.6-2.3); POTASSIUM 3.6 MMOL/L (3.6-5.0); SODIUM 135 mmol/l (132-148)
[2017-07-09] MEDS: Enoxaparin 40 mg Syringe SC SCH (08:43)
[2017-07-09] MEDS: Cefepime 1 GM in Sodium Chloride 0.9% 100 ML IVPB SCH ×2 (08:43→21:05)
[2017-07-09] MEDS: guaiFENesin 600 mg ER Tab PO SCH ×2 (08:44→21:06)
[2017-07-09] MEDS: Pravastatin Sodium 20 MG TAB PO SCH (08:45)
[2017-07-09] MEDS: Pantoprazole 40 mg Susp UD NG SCH (08:45)
[2017-07-09] MEDS: Levothyroxine 100 MCG TAB PO SCH (08:45)
--- NOTE | 2017-07-09 09:35 | CP.PCM.PN ---
Subjective - Date & Time of Evaluation Date of Evaluation: 07/09/17 Time of Evaluation: 09:30 - Subjective Subjective: Remains afebrile, WBC 10. Not in any acute distress. On dual antibiotic coverage with cefepime/vanco. Sitting up in bed, ate breakfast. Follows simple commands. Breath sounds are diminished bilaterally. Sonorous rhonchi and dry to medium rales in both LL's. No audible wheezes or bronchial breath sounds. Continue present antibiotic and aerosol regimen. OOB to chair when able. Followup CXR in AM tomorrow. Objective - Vital Signs/Intake and Output Vital Signs (last 24 hours): Temp Pulse Resp BP Pulse Ox 98.9 F 81 20 99/62 L 94 L 07/09/17 08:05 07/09/17 08:05 07/09/17 08:05 07/09/17 08:05 07/09/17 08:05 - Medications Medications: Current Medications Albuterol/Ipratropium (Duoneb 3 Mg/0.5 Mg (3 Ml) Ud) 3 ml INH RQ4 [facility] Last Admin: 07/09/17 07:40 Dose: 3 ml Alendronate Sodium (Fosamax) 70 mg PO QWK [facility] Donepezil HCl (Aricept) 10 mg PO DAILY [facility] Last Admin: 07/09/17 08:40 Dose: 10 mg Enalapril Maleate (Vasotec) 5 mg PO DAILY [facility] Last Admin: 07/09/17 08:45 Dose: Not Given Enoxaparin Sodium (Lovenox) 40 mg SC DAILY [facility] PRN Reason: Protocol Last Admin: 07/09/17 08:43 Dose: 40 mg Gabapentin (Neurontin) 400 mg PO DAILY [facility] Last Admin: 07/09/17 08:44 Dose: 400 mg Guaifenesin (Mucinex La) 600 mg PO Q12 [facility] Last Admin: 07/09/17 08:44 Dose: 600 mg Hydrochlorothiazide (Microzide) 12.5 mg PO DAILY [facility] Last Admin: 07/09/17 08:44 Dose: 12.5 mg Cefepime HCl 1 gm/ Sodium (Chloride) 100 mls @ 100 mls/hr IVPB Q12 [facility] Last Admin: 07/09/17 08:43 Dose: 100 mls/hr Vancomycin HCl 1 gm/ Sodium (Chloride) 250 mls @ 166.667 mls/hr IVPB Q12@1000, 2200 [facility] Last Admin: 07/08/17 22:47 Dose: 166.667 mls/hr Isosorbide Mononitrate (Imdur Er) 30 mg PO DAILY [facility] Last Admin: 07/09/17 08:41 Dose: Not Given Levothyroxine Sodium (Synthroid) 100 mcg PO DAILY@0630 [facility] Last Admin: 07/09/17 08:45 Dose: 100 mcg Memantine (Namenda) 10 mg PO DAILY [facility] Last Admin: 07/09/17 08:44 Dose: 10 mg Oxycodone/Acetaminophen (Percocet 5/325 Mg Tab) 1 tab PO Q6 PRN PRN Reason: Pain, moderate (4-7) Stop: 07/10/17 14:33 Last Admin: 07/08/17 10:33 Dose: 1 tab Oxycodone/Acetaminophen (Percocet 5/325 Mg Tab) 2 tab PO Q6 PRN PRN Reason: Pain, severe (8-10) Stop: 07/10/17 14:33 Pantoprazole Sodium (Protonix Susp) 40 mg NG DAILY [facility] Last Admin: 07/09/17 08:45 Dose: 40 mg Pravastatin Sodium (Pravachol) 20 mg PO DAILY [facility] Last Admin: 07/09/17 08:45 Dose: 20 mg Sertraline HCl (Zoloft) 25 mg PO DAILY [facility] Last Admin: 07/09/17 08:45 Dose: 25 mg - Labs Labs: 07/09/17 06:00 07/09/17 06:00 PT 12.9 Seconds (9.8-13.1) 07/06/17 04:25 INR 1.3 (0.9-1.2) H 07/06/17 04:25 APTT 25.5 Seconds (25.6-37.1) L 07/06/17 04:25 Assessment and Plan (1) Nosocomial pneumonia Status: Acute (2) CAD (coronary artery disease) Status: Chronic (3) Osteoarthritis of right knee Status: Chronic
[2017-07-09] MEDS: Oxycodone/Acetaminophen 5/325 mg Tab PO PRN ×2 (10:38→16:55)
--- NOTE | 2017-07-09 11:02 | CP.PCM.PN ---
Subjective - Date & Time of Evaluation Date of Evaluation: 07/09/17 Time of Evaluation: 10:30 - Subjective Subjective: COMPLAINTS OF SURGICAL SITE PAIN NO CHEST PAIN NURSES STATES SHE HAS SOB SOB AT TIMES Objective - Vital Signs/Intake and Output Vital Signs (last 24 hours): Temp Pulse Resp BP Pulse Ox 98.9 F 81 20 99/62 L 94 L 07/09/17 09:00 07/09/17 08:05 07/09/17 08:05 07/09/17 08:05 07/09/17 08:05 - Medications Medications: Current Medications Albuterol/Ipratropium (Duoneb 3 Mg/0.5 Mg (3 Ml) Ud) 3 ml INH RQ4 [facility] Last Admin: 07/09/17 07:40 Dose: 3 ml Alendronate Sodium (Fosamax) 70 mg PO QWK [facility] Donepezil HCl (Aricept) 10 mg PO DAILY [facility] Last Admin: 07/09/17 08:40 Dose: 10 mg Enalapril Maleate (Vasotec) 5 mg PO DAILY [facility] Last Admin: 07/09/17 08:45 Dose: Not Given Enoxaparin Sodium (Lovenox) 40 mg SC DAILY [facility] PRN Reason: Protocol Last Admin: 07/09/17 08:43 Dose: 40 mg Gabapentin (Neurontin) 400 mg PO DAILY [facility] Last Admin: 07/09/17 08:44 Dose: 400 mg Guaifenesin (Mucinex La) 600 mg PO Q12 [facility] Last Admin: 07/09/17 08:44 Dose: 600 mg Hydrochlorothiazide (Microzide) 12.5 mg PO DAILY [facility] Last Admin: 07/09/17 08:44 Dose: 12.5 mg Cefepime HCl 1 gm/ Sodium (Chloride) 100 mls @ 100 mls/hr IVPB Q12 [facility] Last Admin: 07/09/17 08:43 Dose: 100 mls/hr Vancomycin HCl 1 gm/ Sodium (Chloride) 250 mls @ 166.667 mls/hr IVPB Q12@1000, 2200 [facility] Last Admin: 07/09/17 10:39 Dose: 166.667 mls/hr Isosorbide Mononitrate (Imdur Er) 30 mg PO DAILY [facility] Last Admin: 07/09/17 08:41 Dose: Not Given Levothyroxine Sodium (Synthroid) 100 mcg PO DAILY@0630 [facility] Last Admin: 07/09/17 08:45 Dose: 100 mcg Memantine (Namenda) 10 mg PO DAILY [facility] Last Admin: 07/09/17 08:44 Dose: 10 mg Oxycodone/Acetaminophen (Percocet 5/325 Mg Tab) 1 tab PO Q6 PRN PRN Reason: Pain, moderate (4-7) Stop: 07/10/17 14:33 Last Admin: 07/09/17 10:38 Dose: 1 tab Oxycodone/Acetaminophen (Percocet 5/325 Mg Tab) 2 tab PO Q6 PRN PRN Reason: Pain, severe (8-10) Stop: 07/10/17 14:33 Pantoprazole Sodium (Protonix Susp) 40 mg NG DAILY [facility] Last Admin: 07/09/17 08:45 Dose: 40 mg Pravastatin Sodium (Pravachol) 20 mg PO DAILY [facility] Last Admin: 07/09/17 08:45 Dose: 20 mg Sertraline HCl (Zoloft) 25 mg PO DAILY [facility] Last Admin: 07/09/17 08:45 Dose: 25 mg - Labs Labs: 07/09/17 06:00 07/09/17 06:00 PT 12.9 Seconds (9.8-13.1) 07/06/17 04:25 INR 1.3 (0.9-1.2) H 07/06/17 04:25 APTT 25.5 Seconds (25.6-37.1) L 07/06/17 04:25 - Respiratory Exam Respiratory Exam: Decreased Breath Sounds Additional comments: BILATERAL BASILAR RALES - Cardiovascular Exam Cardiovascular Exam: REGULAR RHYTHM, +S1, +S2 - Extremities Exam Additional comments: NO LE EDEMA - Additional Findings Additional findings: WBC 10K CXR AND CT SCAN REPORTS REVIEWED EKG NSR, T WAVE INVERSIONS V3 TO V6 PAT EKG ALSO HAD SOME T WAVE INVERSIONS PULMONARY NOTES REVIEWED Assessment and Plan - Assessment and Plan (Free Text) Assessment: S/P RIGHT KNEE SURGERY CAD HYPPERTENSION HYPERLIPIDEMIA BILATERAL BASILAR ATELECTASIS/INFILRATES Plan: CONTINUE O2, ANTIBIOTICS, BRONCHODILATORS, INCENTIVE SPIROMETRY, NITRATES, ENALAPRIL, PRAVACHOL AND LOVENOX
--- NOTE | 2017-07-09 11:15 | CP.PCM.PN ---
Subjective - Date & Time of Evaluation Date of Evaluation: 07/09/17 Time of Evaluation: 11:13 - Subjective Subjective: pt seen examined bedside continues to require o2 support which she did not need prior to hospitalization HD stable cont abx states she feels minimally improved Objective - Vital Signs/Intake and Output Vital Signs (last 24 hours): Temp Pulse Resp BP Pulse Ox 98.9 F 81 20 99/62 L 94 L 07/09/17 09:00 07/09/17 08:05 07/09/17 08:05 07/09/17 08:05 07/09/17 08:05 - Medications Medications: Current Medications Albuterol/Ipratropium (Duoneb 3 Mg/0.5 Mg (3 Ml) Ud) 3 ml INH RQ4 [facility] Last Admin: 07/09/17 07:40 Dose: 3 ml Alendronate Sodium (Fosamax) 70 mg PO QWK [facility] Donepezil HCl (Aricept) 10 mg PO DAILY [facility] Last Admin: 07/09/17 08:40 Dose: 10 mg Enalapril Maleate (Vasotec) 5 mg PO DAILY [facility] Last Admin: 07/09/17 08:45 Dose: Not Given Enoxaparin Sodium (Lovenox) 40 mg SC DAILY [facility] PRN Reason: Protocol Last Admin: 07/09/17 08:43 Dose: 40 mg Gabapentin (Neurontin) 400 mg PO DAILY [facility] Last Admin: 07/09/17 08:44 Dose: 400 mg Guaifenesin (Mucinex La) 600 mg PO Q12 [facility] Last Admin: 07/09/17 08:44 Dose: 600 mg Hydrochlorothiazide (Microzide) 12.5 mg PO DAILY [facility] Last Admin: 07/09/17 08:44 Dose: 12.5 mg Cefepime HCl 1 gm/ Sodium (Chloride) 100 mls @ 100 mls/hr IVPB Q12 [facility] Last Admin: 07/09/17 08:43 Dose: 100 mls/hr Vancomycin HCl 1 gm/ Sodium (Chloride) 250 mls @ 166.667 mls/hr IVPB Q12@1000, 2200 [facility] Last Admin: 07/09/17 10:39 Dose: 166.667 mls/hr Isosorbide Mononitrate (Imdur Er) 30 mg PO DAILY [facility] Last Admin: 07/09/17 08:41 Dose: Not Given Levothyroxine Sodium (Synthroid) 100 mcg PO DAILY@0630 [facility] Last Admin: 07/09/17 08:45 Dose: 100 mcg Memantine (Namenda) 10 mg PO DAILY [facility] Last Admin: 07/09/17 08:44 Dose: 10 mg Oxycodone/Acetaminophen (Percocet 5/325 Mg Tab) 1 tab PO Q6 PRN PRN Reason: Pain, moderate (4-7) Stop: 07/10/17 14:33 Last Admin: 07/09/17 10:38 Dose: 1 tab Oxycodone/Acetaminophen (Percocet 5/325 Mg Tab) 2 tab PO Q6 PRN PRN Reason: Pain, severe (8-10) Stop: 07/10/17 14:33 Pantoprazole Sodium (Protonix Susp) 40 mg NG DAILY [facility] Last Admin: 07/09/17 08:45 Dose: 40 mg Pravastatin Sodium (Pravachol) 20 mg PO DAILY [facility] Last Admin: 07/09/17 08:45 Dose: 20 mg Sertraline HCl (Zoloft) 25 mg PO DAILY [facility] Last Admin: 07/09/17 08:45 Dose: 25 mg - Labs Labs: 07/09/17 06:00 07/09/17 06:00 PT 12.9 Seconds (9.8-13.1) 07/06/17 04:25 INR 1.3 (0.9-1.2) H 07/06/17 04:25 APTT 25.5 Seconds (25.6-37.1) L 07/06/17 04:25 - Constitutional Appears: Non-toxic, No Acute Distress - Head Exam Head Exam: ATRAUMATIC, NORMOCEPHALIC - Eye Exam Eye Exam: EOMI, Normal appearance, PERRL - ENT Exam ENT Exam: Mucous Membranes Moist, Normal Exam - Respiratory Exam Respiratory Exam: Decreased Breath Sounds, Rhonchi - Cardiovascular Exam Cardiovascular Exam: RRR, +S1 - GI/Abdominal Exam GI & Abdominal Exam: Soft, Normal Bowel Sounds - Extremities Exam Extremities Exam: Normal Capillary Refill. absent: Pedal Edema - Back Exam Back Exam: absent: CVA tenderness (L), CVA tenderness (R) - Neurological Exam Neurological Exam: Alert, Awake - Psychiatric Exam Psychiatric exam: Normal Affect, Normal Mood - Skin Skin Exam: Dry, Warm Assessment and Plan - Assessment and Plan (Free Text) Plan: 86 yo female with history of CAD (CA 10 yrs ago), HTN, Dementia, Osteoporosis and OA hd elective right TKR 07/05/2017 after failing conservative management. Developed O2 desaturation after getting extubated post surgery requiring re- intubation and maintained on mechanical ventilation overnight. She was successfully extubated and subsequently transferred to [facility]. OA of Right Knee S/P Right TKR, 1st POD continue pain management HYDROmorphone [Dilaudid] 1 mg IVP Q4 PRN Gabapentin [Neurontin] 400 mg PO DAILY physical therapy recommendation: Acute Rehab, possible JAZMYN? lovenox 40 mg sc daily S/P Respiratory failure Currently on 4LPM, continues to desaturate off o2 support. cont anbx. CXR yesterday b/l expansion, tomorrow repeat per pulm. continue Duonebs for CT Chest without contrast per pulmonology Discussed with Dr. Pham Pulmonology Consult appreciated and followed CAD resume Isosorbide Mononitrate and Pravachol HTN BP stable continue Enalapril/HCTZ Dementia resume Donepezil and Memantine and Zoloft Hypothyroid resume Levothyroxine 100mcg PO daily PPX Pantoprazole [Protonix Susp] 40 mg NG DAILY lovenox 40 mg sc daily
[2017-07-10] MEDS: Albuterol-Ipratrop 3 mg / 0.5 (3 ml) UD INH SCH ×4 (05:40→15:18)
[2017-07-10 06:32] LABS: BLOOD UREA NITROGEN 10 mg/dl (7-17); CALCIUM 8.3 mg/dL (8.4-10.2); CARBON DIOXIDE 29 mmol/L (22-30); CHLORIDE 100 mmol/L (98-107); GFR AFRICAN-AMERICAN > 60; GLUCOSE,RANDOM 116 mg/dL (65-105); POTASSIUM 3.9 MMOL/L (3.6-5.0); SODIUM 137 mmol/l (132-148)
[2017-07-10 06:33] LABS: BASO # 0.1 K/uL (0.0-0.2); EOS # 0.3 K/uL (0.0-0.7); EOS % 3.3 % (0.0-4.0); HEMATOCRIT 31.2 % (34.0-47.0); LYMPH # 1.4 K/uL (1.0-4.3); LYMPH % 16.3 % (20.0-40.0); MEAN CELL VOLUME 86.2 fl (81.0-99.0); MEAN CORPUSCULAR HGB CONC 32.5 g/dL (33.0-37.0); MEAN PLATELET VOLUME 9.4 fl (7.2-11.7); MONO % 11.3 % (0.0-10.0); NEUT # 6.1 K/uL (1.8-7.0); NEUT % 68.1 % (50.0-75.0); NRBC % 0.1 % (0.0-0.0); WHITE BLOOD COUNT 8.9 K/uL (4.8-10.8)
[2017-07-10] MEDS: Levothyroxine 100 MCG TAB PO SCH (06:36)
--- NOTE | 2017-07-10 07:32 | CP.PCM.PN ---
Subjective - Date & Time of Evaluation Date of Evaluation: 07/10/17 Time of Evaluation: 07:20 - Subjective Subjective: S pt comfortable awke and alert Objective - Vital Signs/Intake and Output Vital Signs (last 24 hours): Temp Pulse Resp BP Pulse Ox 98.5 F 81 20 117/70 98 07/10/17 00:31 07/10/17 00:31 07/10/17 00:31 07/10/17 00:31 07/10/17 00:31 - Medications Medications: Current Medications Albuterol/Ipratropium (Duoneb 3 Mg/0.5 Mg (3 Ml) Ud) 3 ml INH RQ4 [facility] Last Admin: 07/10/17 07:19 Dose: 3 ml Alendronate Sodium (Fosamax) 70 mg PO QWK [facility] Donepezil HCl (Aricept) 10 mg PO DAILY [facility] Last Admin: 07/09/17 08:40 Dose: 10 mg Enalapril Maleate (Vasotec) 5 mg PO DAILY [facility] Last Admin: 07/09/17 08:45 Dose: Not Given Enoxaparin Sodium (Lovenox) 40 mg SC DAILY [facility] PRN Reason: Protocol Last Admin: 07/09/17 08:43 Dose: 40 mg Gabapentin (Neurontin) 400 mg PO DAILY [facility] Last Admin: 07/09/17 08:44 Dose: 400 mg Guaifenesin (Mucinex La) 600 mg PO Q12 [facility] Last Admin: 07/09/17 21:06 Dose: 600 mg Hydrochlorothiazide (Microzide) 12.5 mg PO DAILY [facility] Last Admin: 07/09/17 08:44 Dose: 12.5 mg Cefepime HCl 1 gm/ Sodium (Chloride) 100 mls @ 100 mls/hr IVPB Q12 [facility] Last Admin: 07/09/17 21:05 Dose: 100 mls/hr Vancomycin HCl 1 gm/ Sodium (Chloride) 250 mls @ 166.667 mls/hr IVPB Q12@1000, 2200 [facility] Last Admin: 07/09/17 22:17 Dose: 166.667 mls/hr Isosorbide Mononitrate (Imdur Er) 30 mg PO DAILY [facility] Last Admin: 07/09/17 08:41 Dose: Not Given Levothyroxine Sodium (Synthroid) 100 mcg PO DAILY@0630 [facility] Last Admin: 07/10/17 06:36 Dose: 100 mcg Memantine (Namenda) 10 mg PO DAILY [facility] Last Admin: 07/09/17 08:44 Dose: 10 mg Oxycodone/Acetaminophen (Percocet 5/325 Mg Tab) 1 tab PO Q6 PRN PRN Reason: Pain, moderate (4-7) Stop: 07/10/17 14:33 Last Admin: 07/09/17 16:55 Dose: 1 tab Oxycodone/Acetaminophen (Percocet 5/325 Mg Tab) 2 tab PO Q6 PRN PRN Reason: Pain, severe (8-10) Stop: 07/10/17 14:33 Pantoprazole Sodium (Protonix Susp) 40 mg NG DAILY [facility] Last Admin: 07/09/17 08:45 Dose: 40 mg Pravastatin Sodium (Pravachol) 20 mg PO DAILY [facility] Last Admin: 07/09/17 08:45 Dose: 20 mg Sertraline HCl (Zoloft) 25 mg PO DAILY [facility] Last Admin: 07/09/17 08:45 Dose: 25 mg - Labs Labs: 07/10/17 06:05 07/10/17 06:05 PT 12.9 Seconds (9.8-13.1) 07/06/17 04:25 INR 1.3 (0.9-1.2) H 07/06/17 04:25 APTT 25.5 Seconds (25.6-37.1) L 07/06/17 04:25 - Skin Additional comments: Obj: systemic- wnl Musculoskekltal stance/gait- defrred R knee dressing dry andf intact knee immobilizer intact orthopedically stable Assessment and Plan - Assessment and Plan (Free Text) Assessment: A- s/p R TKR orthopedically stable for transfer to [facility]
[2017-07-10] MEDS: Enoxaparin 40 mg Syringe SC SCH (09:23)
[2017-07-10] MEDS: guaiFENesin 600 mg ER Tab PO SCH (09:24)
[2017-07-10] MEDS: Cefepime 1 GM in Sodium Chloride 0.9% 100 ML IVPB SCH (09:24)
[2017-07-10] MEDS: Pravastatin Sodium 20 MG TAB PO SCH (09:24)
[2017-07-10] MEDS: Pantoprazole 40 mg Susp UD NG SCH (09:25)
--- NOTE | 2017-07-10 10:01 | CP.PCM.PN ---
Subjective - Date & Time of Evaluation Date of Evaluation: 07/10/17 Time of Evaluation: 09:57 - Subjective Subjective: Appears comfortable. SpO2 95%. No respiratory distress. Remains afebrile. Occasional non-productive cough. Dry basal rales noted posteriorly, R>L. No audible wheeze, no bronchial breath sounds. Neck is supple and trachea is midline. No cyanosis. Clinically improving on current regimen. Stable for transfer to rehab on current medical regimen. Needs random vanco level before discharge. Total treatment time should cover two weeks for nosocomial process. Objective - Vital Signs/Intake and Output Vital Signs (last 24 hours): Temp Pulse Resp BP Pulse Ox 98.2 F 90 20 122/72 94 L 07/10/17 08:37 07/10/17 08:37 07/10/17 08:37 07/10/17 08:37 07/10/17 08:37 - Medications Medications: Current Medications Albuterol/Ipratropium (Duoneb 3 Mg/0.5 Mg (3 Ml) Ud) 3 ml INH RQ4 [facility] Last Admin: 07/10/17 07:19 Dose: 3 ml Alendronate Sodium (Fosamax) 70 mg PO QWK [facility] Donepezil HCl (Aricept) 10 mg PO DAILY [facility] Last Admin: 07/10/17 09:23 Dose: 10 mg Enalapril Maleate (Vasotec) 5 mg PO DAILY [facility] Last Admin: 07/10/17 09:25 Dose: 5 mg Enoxaparin Sodium (Lovenox) 40 mg SC DAILY [facility] PRN Reason: Protocol Last Admin: 07/10/17 09:23 Dose: 40 mg Gabapentin (Neurontin) 400 mg PO DAILY [facility] Last Admin: 07/10/17 09:24 Dose: 400 mg Guaifenesin (Mucinex La) 600 mg PO Q12 [facility] Last Admin: 07/10/17 09:24 Dose: 600 mg Hydrochlorothiazide (Microzide) 12.5 mg PO DAILY [facility] Last Admin: 07/10/17 09:24 Dose: 12.5 mg Cefepime HCl 1 gm/ Sodium (Chloride) 100 mls @ 100 mls/hr IVPB Q12 [facility] Last Admin: 07/10/17 09:24 Dose: 100 mls/hr Vancomycin HCl 1 gm/ Sodium (Chloride) 250 mls @ 166.667 mls/hr IVPB Q12@1000, 2200 [facility] Last Admin: 07/09/17 22:17 Dose: 166.667 mls/hr Isosorbide Mononitrate (Imdur Er) 30 mg PO DAILY [facility] Last Admin: 07/10/17 09:23 Dose: 30 mg Levothyroxine Sodium (Synthroid) 100 mcg PO DAILY@0630 [facility] Last Admin: 07/10/17 06:36 Dose: 100 mcg Memantine (Namenda) 10 mg PO DAILY [facility] Last Admin: 07/10/17 09:24 Dose: 10 mg Oxycodone/Acetaminophen (Percocet 5/325 Mg Tab) 1 tab PO Q6 PRN PRN Reason: Pain, moderate (4-7) Stop: 07/10/17 14:33 Last Admin: 07/09/17 16:55 Dose: 1 tab Oxycodone/Acetaminophen (Percocet 5/325 Mg Tab) 2 tab PO Q6 PRN PRN Reason: Pain, severe (8-10) Stop: 07/10/17 14:33 Pantoprazole Sodium (Protonix Susp) 40 mg NG DAILY [facility] Last Admin: 07/10/17 09:25 Dose: 40 mg Pravastatin Sodium (Pravachol) 20 mg PO DAILY [facility] Last Admin: 07/10/17 09:24 Dose: 20 mg Sertraline HCl (Zoloft) 25 mg PO DAILY [facility] Last Admin: 07/10/17 09:25 Dose: 25 mg - Labs Labs: 07/10/17 06:05 07/10/17 06:05 PT 12.9 Seconds (9.8-13.1) 07/06/17 04:25 INR 1.3 (0.9-1.2) H 07/06/17 04:25 APTT 25.5 Seconds (25.6-37.1) L 07/06/17 04:25 Assessment and Plan (1) Nosocomial pneumonia Status: Acute (2) CAD (coronary artery disease) Status: Chronic (3) Osteoarthritis of right knee Status: Chronic
--- NOTE | 2017-07-10 10:52 | CP.PCM.PN ---
Subjective - Date & Time of Evaluation Date of Evaluation: 07/10/17 Time of Evaluation: 08:30 - Subjective Subjective: NO CHEST PAIN OR SOB Objective - Vital Signs/Intake and Output Vital Signs (last 24 hours): Temp Pulse Resp BP Pulse Ox 98.2 F 90 20 122/72 94 L 07/10/17 09:00 07/10/17 09:00 07/10/17 09:00 07/10/17 09:00 07/10/17 09:00 - Medications Medications: Current Medications Albuterol/Ipratropium (Duoneb 3 Mg/0.5 Mg (3 Ml) Ud) 3 ml INH RQ4 [facility] Last Admin: 07/10/17 07:19 Dose: 3 ml Alendronate Sodium (Fosamax) 70 mg PO QWK [facility] Donepezil HCl (Aricept) 10 mg PO DAILY [facility] Last Admin: 07/10/17 09:23 Dose: 10 mg Enalapril Maleate (Vasotec) 5 mg PO DAILY [facility] Last Admin: 07/10/17 09:25 Dose: 5 mg Enoxaparin Sodium (Lovenox) 40 mg SC DAILY [facility] PRN Reason: Protocol Last Admin: 07/10/17 09:23 Dose: 40 mg Gabapentin (Neurontin) 400 mg PO DAILY [facility] Last Admin: 07/10/17 09:24 Dose: 400 mg Guaifenesin (Mucinex La) 600 mg PO Q12 [facility] Last Admin: 07/10/17 09:24 Dose: 600 mg Hydrochlorothiazide (Microzide) 12.5 mg PO DAILY [facility] Last Admin: 07/10/17 09:24 Dose: 12.5 mg Cefepime HCl 1 gm/ Sodium (Chloride) 100 mls @ 100 mls/hr IVPB Q12 [facility] Last Admin: 07/10/17 09:24 Dose: 100 mls/hr Vancomycin HCl 1 gm/ Sodium (Chloride) 250 mls @ 166.667 mls/hr IVPB Q12@1000, 2200 [facility] Last Admin: 07/09/17 22:17 Dose: 166.667 mls/hr Isosorbide Mononitrate (Imdur Er) 30 mg PO DAILY [facility] Last Admin: 07/10/17 09:23 Dose: 30 mg Levothyroxine Sodium (Synthroid) 100 mcg PO DAILY@0630 [facility] Last Admin: 07/10/17 06:36 Dose: 100 mcg Memantine (Namenda) 10 mg PO DAILY [facility] Last Admin: 07/10/17 09:24 Dose: 10 mg Oxycodone/Acetaminophen (Percocet 5/325 Mg Tab) 1 tab PO Q6 PRN PRN Reason: Pain, moderate (4-7) Stop: 07/10/17 14:33 Last Admin: 07/09/17 16:55 Dose: 1 tab Oxycodone/Acetaminophen (Percocet 5/325 Mg Tab) 2 tab PO Q6 PRN PRN Reason: Pain, severe (8-10) Stop: 07/10/17 14:33 Pantoprazole Sodium (Protonix Susp) 40 mg NG DAILY [facility] Last Admin: 07/10/17 09:25 Dose: 40 mg Pravastatin Sodium (Pravachol) 20 mg PO DAILY [facility] Last Admin: 07/10/17 09:24 Dose: 20 mg Sertraline HCl (Zoloft) 25 mg PO DAILY [facility] Last Admin: 07/10/17 09:25 Dose: 25 mg - Labs Labs: 07/10/17 06:05 07/10/17 06:05 PT 12.9 Seconds (9.8-13.1) 07/06/17 04:25 INR 1.3 (0.9-1.2) H 07/06/17 04:25 APTT 25.5 Seconds (25.6-37.1) L 07/06/17 04:25 - Respiratory Exam Respiratory Exam: Rales - Cardiovascular Exam Cardiovascular Exam: REGULAR RHYTHM, +S1, +S2 Assessment and Plan - Assessment and Plan (Free Text) Assessment: S/P RIGHT KNEE SURGERY CAD HYPERTENSION HYPERLIPIDEMIA Plan: CONTINUE NITRATES, PRAVACHOL, ENALAPRIL, LOVENOX, ANTIBIOTICS, BRONCHODILATORS
--- NOTE | 2017-07-10 11:03 | CP.PCM.DIS ---
Provider - Provider Date of Admission: 07/05/17 22:23 Attending physician: Jorge Niño MD Primary care physician: Zurdo Brar III, MD Consults: pulmonary consult ortho consult anesthesiology consult cardiology consult Time Spent in preparation of Discharge (in minutes): 20 Hospital Course - Lab Results Lab Results: Micro Results 07/06/17 20:15 Naris MRSA Culture (Admit) - Final MRSA NOT DETECTED 07/05/17 01:06 Naris MRSA Culture (Admit) - Final MRSA NOT DETECTED 07/06/17 08:02 Urine,Gutierrez Urine Culture - Final No Growth (<1,000 CFU/ML) Most Recent Lab Values WBC 8.9 K/uL (4.8-10.8) 07/10/17 06:05 RBC 3.62 Mil/uL (3.80-5.20) L 07/10/17 06:05 Hgb 10.1 g/dL (12.0-16.0) L 07/10/17 06:05 Hct 31.2 % (34.0-47.0) L 07/10/17 06:05 MCV 86.2 fl (81.0-99.0) 07/10/17 06:05 MCH 28.0 pg (27.0-31.0) 07/10/17 06:05 MCHC 32.5 g/dL (33.0-37.0) L 07/10/17 06:05 RDW 15.0 % (11.5-14.5) H 07/10/17 06:05 Plt Count 247 K/uL (130-400) 07/10/17 06:05 MPV 9.4 fl (7.2-11.7) 07/10/17 06:05 Neut % (Auto) 68.1 % (50.0-75.0) 07/10/17 06:05 Lymph % (Auto) 16.3 % (20.0-40.0) L 07/10/17 06:05 [place] % (Auto) 11.3 % (0.0-10.0) H 07/10/17 06:05 Eos % (Auto) 3.3 % (0.0-4.0) 07/10/17 06:05 Baso % (Auto) 1.0 % (0.0-2.0) 07/10/17 06:05 Neut # 6.1 K/uL (1.8-7.0) 07/10/17 06:05 Lymph # 1.4 K/uL (1.0-4.3) 07/10/17 06:05 [place] # 1.0 K/uL (0.0-0.8) H 07/10/17 06:05 Eos # 0.3 K/uL (0.0-0.7) 07/10/17 06:05 Baso # 0.1 K/uL (0.0-0.2) 07/10/17 06:05 PT 12.9 Seconds (9.8-13.1) 07/06/17 04:25 INR 1.3 (0.9-1.2) H 07/06/17 04:25 APTT 25.5 Seconds (25.6-37.1) L 07/06/17 04:25 pCO2 39 mm/Hg (35-45) 07/06/17 04:12 pO2 92 mm/Hg (80-100) 07/06/17 04:12 HCO3 25.0 mmol/L (21-28) 07/06/17 04:12 ABG pH 7.41 (7.35-7.45) 07/06/17 04:12 ABG Total CO2 25.9 mmol/L (22-28) 07/06/17 04:12 ABG O2 Saturation 98.8 % (95-98) H 07/06/17 04:12 ABG O2 Content 17.9 ML/dL (15-23) 07/06/17 04:12 ABG Base Excess 0.1 mmol/L (-2.0-3.0) 07/06/17 04:12 ABG Hemoglobin 13.3 g/dL (11.7-17.4) 07/06/17 04:12 ABG Carboxyhemoglobin 1.5 % (0.5-1.5) 07/06/17 04:12 POC ABG HHb (Measured) 1.2 % (0.0-5.0) 07/06/17 04:12 ABG Methemoglobin 1.7 % (0.0-3.0) 07/06/17 04:12 ABG O2 Capacity 18.1 mL/dL (16-24) 07/06/17 04:12 Eugenio Test Yes 07/06/17 04:12 A-a O2 Difference 287.0 mm/Hg 07/06/17 04:12 Hgb O2 Saturation 95.5 % (95.0-98.0) 07/06/17 04:12 Vent Mode A/c 07/06/17 04:12 Mechanical Rate 10 07/06/17 04:12 FiO2 60.0 % 07/06/17 04:12 Tidal Volume 400 07/06/17 04:12 PEEP 5 07/06/17 04:12 Sodium 137 mmol/l (132-148) 07/10/17 06:05 Potassium 3.9 MMOL/L (3.6-5.0) 07/10/17 06:05 Chloride 100 mmol/L (98-107) 07/10/17 06:05 Carbon Dioxide 29 mmol/L (22-30) 07/10/17 06:05 Anion Gap 12 (10-20) 07/10/17 06:05 BUN 10 mg/dl (7-17) 07/10/17 06:05 Creatinine 0.7 mg/dL (0.7-1.2) 07/10/17 06:05 Est GFR ( Amer) > 60 07/10/17 06:05 Est GFR (Non-Af Amer) > 60 07/10/17 06:05 POC Glucose (mg/dL) 150 mg/dL (65-110) H 07/06/17 16:43 Random Glucose 116 mg/dL (65-105) H 07/10/17 06:05 Calcium 8.3 mg/dL (8.4-10.2) L 07/10/17 06:05 Magnesium 2.2 MG/DL (1.6-2.3) 07/09/17 06:00 Total Bilirubin 0.9 mg/dl (0.2-1.3) 07/08/17 08:50 AST 28 U/L (14-36) 07/08/17 08:50 ALT 25 U/L (9-52) 07/08/17 08:50 Alkaline Phosphatase 81 U/L (38-126) 07/08/17 08:50 Total Protein 5.5 G/DL (6.3-8.2) L 07/08/17 08:50 Albumin 2.8 g/dL (3.5-5.0) L 07/08/17 08:50 Globulin 2.7 gm/dL (2.2-3.9) 07/08/17 08:50 Albumin/Globulin Ratio 1.0 (1.0-2.1) 07/08/17 08:50 Urine Color Yellow (YELLOW) 07/05/17 12:30 Urine Clarity Turbid (Clear) 07/05/17 12:30 Urine pH 7.0 (5.0-8.0) 07/05/17 12:30 Ur Specific [place] 1.018 (1.003-1.030) 07/05/17 12:30 Urine Protein Negative mg/dL (NEGATIVE) 07/05/17 12:30 Urine Glucose (UA) Neg mg/dL (Normal) 07/05/17 12:30 Urine Ketones Negative mg/dL (NEGATIVE) 07/05/17 12:30 Urine Blood Negative (NEGATIVE) 07/05/17 12:30 Urine Nitrate Negative (NEGATIVE) 07/05/17 12:30 Urine Bilirubin Negative (NEGATIVE) 07/05/17 12:30 Urine Urobilinogen 0.2-1.0 mg/dL (0.2-1.0) 07/05/17 12:30 Ur Leukocyte Esterase Neg Yandel/uL (Negative) 07/05/17 12:30 Urine RBC (Auto) 1 /hpf (0-3) 07/05/17 12:30 Ur Squamous Epith Cells < 1 /hpf (0-5) 07/05/17 12:30 Amorphous Sediment Moderate /ul (<OCC) H 07/05/17 12:30 Blood Type O POSITIVE 07/05/17 10:50 Blood Type Confirm O POSITIVE 07/06/17 12:00 Antibody Screen Negative 07/05/17 10:50 BBK History Checked No verified bt 07/05/17 10:50 - Hospital Course Hospital Course: 86 yo female with history of CAD (SD 10 yrs ago), HTN, Dementia, Osteoporosis and OA had elective right TKR 07/05/2017 after failing conservative management. Developed O2 desaturation after getting extubated post surgery requiring re- intubation and was maintained on mechanical ventilation overnight. She was successfully extubated and subsequently transferred to [facility] [place]. CT chest showed bibasilar pneumonia.Pulmonar was cosnulted and started patient on IV vanco and Cefepime for nasocomial Pneumonia Patient current doing well, pain to right knee is controlled, hemodynamically stable, afebrile, saturating 96 % on 4 L 02 vi aNC. patient cleraed for discharge by otho and pulmonary . will d/c to [facility] to continue physical therapy Continue IV antibiotics for total 2 weeks 1.OA of Right Knee S/P Right TKR pain is well controlled continue pain management lovenox 40 mg sc daily d/c to [facility] for physical therapy 2.S/P Respiratory failure post extubation CT chest showed bilateral infiltrates Currently on 4LPM, continue O2 support and IV antibiotics pulmonary consulted continue Duonebs Started on IV Vancomycin and Cefepime for nasocomial pneumonia and will continue for [address] Pham Pulmonology 3.CAD stable resume Isosorbide Mononitrate and Pravachol 4.HTN BP stable continue Enalapril/HCTZ 5.Dementia on Donepezil and Memantine and Zoloft 6.Hypothyroid on Levothyroxine 100mcg PO daily 7.PPX Pantoprazole [Protonix Susp] 40 mg NG DAILY lovenox 40 mg sc daily 8. Acute blood loss anemia Hgb dropped from 13--10 C ontinue to monitor Discharge Exam - Head Exam Head Exam: ATRAUMATIC, NORMOCEPHALIC - Eye Exam Eye Exam: EOMI, Normal appearance, PERRL Pupil Exam: NORMAL ACCOMODATION - ENT Exam ENT Exam: Mucous Membranes Moist, Normal Exam - Neck Exam Neck exam: Full Rom, Normal Inspection - Respiratory Exam Respiratory Exam: Clear to PA & Lateral, NORMAL BREATHING PATTERN. absent: Rhonchi, Wheezes, Respiratory Distress - Cardiovascular Exam Cardiovascular Exam: REGULAR RHYTHM, RRR, +S1, +S2. absent: JVD - GI/Abdominal Exam GI & Abdominal Exam: Normal Bowel Sounds, Soft. absent: Distended, Guarding, Rebound, Tenderness - Rectal Exam Rectal Exam: Deferred - Extremities Exam Extremities exam: normal capillary refill, normal inspection, pedal pulses present Additional comments: right knee dressing in place - Back Exam Back exam: NORMAL INSPECTION - Neurological Exam Neurological exam: Alert, CN II-XII Intact, Reflexes Normal - Skin Skin Exam: Dry, Intact, Normal Color, Warm Discharge Plan - Follow Up Plan Condition: GOOD Disposition: HOME/ ROUTINE Patient education suggested?: Yes Referrals: Zurdo Brar III, MD [Primary Care Provider] -
--- NOTE | 2017-07-10 11:45 | RAD ---
HISTORY: pneumonia COMPARISON: Portable chest. 07/07/2017. FINDINGS: LUNGS: Limited patchy infiltrates question in the left infrahilar spaces with patient further rotated toward the right limiting evaluation of the right hemithorax. Minimal right pleural effusion or atelectasis blunts the right costophrenic sulcus once again. No left pleural effusion. No pneumothorax bilaterally. PLEURA: As above. CARDIOVASCULAR: Stable cardiomediastinal silhouette is appreciated. OSSEOUS STRUCTURES: No significant abnormalities. VISUALIZED UPPER ABDOMEN: Normal. OTHER FINDINGS: None. IMPRESSION: Limited patchy atelectasis or infiltrate is questioned at the left infrahilar space with trace right pleural effusion in question as well. Yes
[2017-07-10] MEDS: Oxycodone/Acetaminophen 5/325 mg Tab PO PRN (13:06)
[2017-07-10 15:43] VITALS: BP 107/62; PULSE 80; RESP 18; TEMP 98.6; O2SAT 95
== END 2017-07-10 16:19 | disposition home or self-care (01) | DRG 469 ==
LOC: H.OPSURG 09:54 → H.ICU/CCU 22:23 → H.MEDSURG1 07-06 21:10
PROC: 0SRC0J9 Replacement of Right Knee Joint with Synthetic Substitute, Cemented, Open Approach (ICD-10-PCS; principal; 2017-07-05 13:00)
PROC: 0BH17EZ Insertion of Endotracheal Airway into Trachea, Via Natural or Artificial Opening (ICD-10-PCS; 2017-07-05 13:00)
PROC: 5A1935Z Respiratory Ventilation, Less than 24 Consecutive Hours (ICD-10-PCS; 2017-07-05 13:00)
PROC: 3E0234Z Introduction of Serum, Toxoid and Vaccine into Muscle, Percutaneous Approach (ICD-10-PCS; 2017-07-06)
DX: M17.11 Unilateral primary osteoarthritis, right knee (principal); J18.9 Pneumonia, unspecified organism; J96.00 Acute respiratory failure, unspecified whether with hypoxia or hypercapnia; D62 Acute posthemorrhagic anemia; E87.70 Fluid overload, unspecified; J98.11 Atelectasis; F03.90 Unspecified dementia, unspecified severity, without behavioral disturbance, psychotic disturbance, mood disturbance, and anxiety; E03.9 Hypothyroidism, unspecified; E78.5 Hyperlipidemia, unspecified; I10 Essential (primary) hypertension; I25.10 Atherosclerotic heart disease of native coronary artery without angina pectoris; I25.2 Old myocardial infarction; M81.0 Age-related osteoporosis without current pathological fracture; Y95 Nosocomial condition; Z87.440 Personal history of urinary (tract) infections; M65.861 Other synovitis and tenosynovitis, right lower leg; Z23 Encounter for immunization